=== PATIENT | male | born 1985 | race Caucasian/White ===

== ENCOUNTER 2016-11-09 01:08 | Inpatient (IN) | payer OTHER ==
[~2016-11-09] VITALS: Ht 177.8 cm; Wt 127.8 kg
[2016-11-09] MEDS ORDERED: ATV/1 PO (01:45)
[2016-11-09 01:56] LABS: HEMATOCRIT 43.2 % (42-52); MEAN CELL VOLUME 84.2 fL (80-100); MEAN CORPUSCULAR HEMOGLOBIN 28.7 pg (25-34); MEAN PLATELET VOLUME 10.9 fL (7.4-10.4); PLATELET COUNT 216 K/uL (130-400); RED BLOOD COUNT 5.13 M/uL (4.7-6.1); WHITE BLOOD COUNT 6.49 K/uL (4.8-10.8)
[2016-11-09] MEDS ORDERED: LORAZEPAM 1 MG TAB SL STA (01:57)
[2016-11-09 02:07] LABS: ALT/SGPT 37 U/L (12-78); AST/SGOT 19 U/L (15-37); BLOOD UREA NITROGEN 25 mg/dl (7-18); BUN/CREATININE RATIO 28.9 (10-20); CALCIUM 8.5 mg/dl (8.5-10.1); CARBON DIOXIDE 24 mmol/L (21-32); CHLORIDE 105 mmol/L (98-107); CREATININE 0.88 mg/dl (0.60-1.40); GLUCOSE 121 mg/dl (70-99); POTASSIUM 3.5 mmol/L (3.5-5.1); SODIUM 140 mmol/L (136-145)
[2016-11-09 02:09] LABS: ACETAMINOPHEN < 2 ug/ml (10-30)
[2016-11-09 02:17] LABS: ALKALINE PHOSPHATASE 56 U/L (45-117)
[2016-11-09 02:30] LABS: URINE APPEARANCE CLEAR (CLEAR); URINE BILIRUBIN NEG (NEG); URINE COLOR YELLOW; URINE EPITHELIAL CELL AUTO >30 /lpf (0-5); URINE NITRITE NEG (NEG); URINE SPECIFIC GRAVITY 1.033 (1.000-1.030); UROBILINOGEN NEG (NEG)
[2016-11-09 02:34] LABS: MANUAL MICROSCOPIC REQUIRED? NO; REVIEW REQ? NO
[2016-11-09 02:35] LABS: BENZODIAZEPINE, URINE NEG (NEG); COCAINE,URINE NEG (NEG); PHENCYCLIDINE, URINE NEG (NEG)
--- NOTE | 2016-11-09 02:36 | EMERGENCY ROOM VISIT NOTE ---
History Report prepared by Jose: Monique Tucker Under the Supervision of: Dr. Karlie Landry D.O. First contact with patient: 01:09 Chief Complaint: MENTAL HEALTH EVALUATION Stated Complaint: MENTAL HEALTH History of Present Illness The patient is a 31 year old male who presents to the Emergency Room with complaints of worsening mental instability that began a few days ago. The patient stats that he has a history of schizoaffective disorder. He states that he is currently on Lorazepam. The patient states that over the past several days he has been arguing with his father. He states that he would like to spend a few days in the hospital for psychiatric reasons. The patient states that he has been evaluated for psychiatric reasons in the past here and in other facilities. He denies any other health problems than the schizoaffective disorder. The patient states that he occasionally uses heroin, noting that he last used a few months ago. He states that he lives with his father and is currently unemployed. The patient denies any suicidal or homicidal ideation, but describes his mental instability. He denies any history of an irregular heartbeat. The patient notes a scratch to his left arm from a cat. Source of History: patient Onset: few days ago Position: other (global) Quality: other (mental instability) Timing: worsening Review of Systems See HPI for pertinent positives & negatives. A total of 10 systems reviewed and were otherwise negative. Past Medical & Surgical Medical Problems: (1) Antisocial personality disorder (2) Anxiety disorder (3) Depression (4) Hypertension Nos (5) Schizophrenia Family History No pertinent family history Social History Smoking Status: Former Smoker Alcohol Use: occasionally Drug Use: marijuana Marital Status: single Housing Status: lives with family Occupation Status: employed Current/Historical Medications Scheduled Lorazepam (Ativan), 1 MG PO DAILY Allergies Coded Allergies: Poison Iona Extract/Poison [place] Extra (Unverified Allergy, Severe, RASH, ) Physical Exam Vital Signs Date Time Temp Pulse Resp B/P Pulse Ox O2 Delivery O2 Flow Rate FiO2 11/09/16 01:52 84 18 148/81 Room Air 11/09/16 01:11 36.5 83 18 184/112 95 Room Air Physical Exam HEENT: Head - normocephalic and atraumatic Pupils are equal, round, and reactive to light. Extraocular eye muscles are intact, and sclera are anicteric. Nose - moist nasal mucosa without discharge. Mouth - moist buccal mucosa. Oropharynx is nonerythematous and there is no tonsillar exudate or edema noted. Neck: Supple; no JVD, nuchal rigidity, cervical lymphadenopathy. Heart: Regular rate and initial irregular rhythm. There is a normal S1 and S2 with no murmurs, clicks, or gallops appreciated. Lungs: Clear to auscultation bilaterally with no wheezes, rales, or rhonchi. Abdomen: Soft, completely nontender, nondistended, with good bowel sounds. There are no palpable pulsatile masses or hepatosplenomegaly. There is no guarding, rigidity, or rebound noted. Extremities: No evidence of cyanosis, clubbing, or edema. There are easily palpable peripheral pulses. Skin: warm and dry with good turgor and no rashes. Psych: Flat affect, denies suicidal or homicidal ideation, but describes mental instability. Medical Decision & Procedures Laboratory Results 11/09/16 01:27 11/09/16 01:27 Test 11/09/16 01:27 11/09/16 02:00 Red Blood Count 5.13 M/uL (4.7-6.1) Mean Corpuscular Volume 84.2 fL (80-100) Mean Corpuscular Hemoglobin 28.7 pg (25-34) Mean Corpuscular Hemoglobin Concent 34.0 g/dl (32-36) RDW Standard Deviation 38.6 fL (36.4-46.3) RDW Coefficient of Variation 12.7 % (11.5-14.5) Mean Platelet Volume 10.9 fL (7.4-10.4) Anion Gap 11.0 mmol/L (3-11) Est Creatinine Clear Calc Drug Dose 160.3 ml/min Estimated GFR () 130.8 Estimated GFR (Non- 112.9 BUN/Creatinine Ratio 28.9 (10-20) Calcium Level 8.5 mg/dl (8.5-10.1) Total Bilirubin 0.3 mg/dl (0.2-1) Direct Bilirubin < 0.1 mg/dl (0-0.2) Aspartate Amino Transf (AST/SGOT) 19 U/L (15-37) Alanine Aminotransferase (ALT/SGPT) 37 U/L (12-78) Alkaline Phosphatase 56 U/L (45-117) Total Protein 6.8 gm/dl (6.4-8.2) Albumin 3.6 gm/dl (3.4-5.0) Thyroid Stimulating Hormone (TSH) 3.130 uIu/ml (0.300-4.500) Salicylates Level < 1.7 mg/dl (2.8-20) Acetaminophen Level < 2 ug/ml (10-30) Ethyl Alcohol mg/dL < 3.0 mg/dl (0-3) Urine Color YELLOW Urine Appearance CLEAR (CLEAR) Urine pH 5.0 (4.5-7.5) Urine Specific [place] 1.033 (1.000-1.030) Urine Protein NEG (NEG) Urine Glucose (UA) NEG (NEG) Urine Ketones NEG (NEG) Urine Occult Blood NEG (NEG) Urine Nitrite NEG (NEG) Urine Bilirubin NEG (NEG) Urine Urobilinogen NEG (NEG) Urine Leukocyte Esterase SMALL (NEG) Urine WBC (Auto) 10-30 /hpf (0-5) Urine RBC (Auto) 0-4 /hpf (0-4) Urine Hyaline Casts (Auto) 1-5 /lpf (0-5) Urine Epithelial Cells (Auto) >30 /lpf (0-5) Urine Bacteria (Auto) NEG (NEG) Urine Opiates Screen NEG (NEG) Urine Methadone, Qualitative NEG (NEG) Urine Barbiturates NEG (NEG) Urine Phencyclidine (PCP) Level NEG (NEG) Ur Amphetamine/Methamphetamine NEG (NEG) MDMA (Ecstasy) Screen NEG (NEG) Urine Benzodiazepines Screen NEG (NEG) Urine Cocaine Metabolite NEG (NEG) Urine Marijuana (THC) NEG (NEG) Laboratory results per my review. Medications Administered Medications (Trade) Dose Ordered Sig/Deonte Route Start Time Stop Time Status Last Admin Dose Admin Lorazepam (Ativan Tab) 2 mg NOW STAT SL 11/09/16 01:57 11/09/16 01:58 DC 11/09/16 02:07 2 MG Procedure The patient was treated with 2 mg SL Ativan Tab. ED Course 0152: Past medical records reviewed. The patient was evaluated in room A5. A complete history and physical exam was performed. Labs were drawn as above. 0157: Ordered Ativan Tab 2 mg SL. 0200: The patient was placed on the monitor due to his auscultated irregular rhythm. It showed an occasional PAC. 0238: The patient is medically clear to be evaluated by Anita Manning. 0317: I reevaluated the patient and he is currently being evaluated by Anita Manning. 0401: I reevaluated the patient and he is signing himself in. He will be taken upstairs for further mental health care. Medical Decision The patient is a 31 year old male who presents to the ED with worsening mental instability. Differential diagnosis includes mood disorder, thought disorder, suicidal ideation, homicidal ideation, exacerbation of schizoaffective. Lab interpretation: white count is normal, stable H&H, normal TSH, glucose 121, BUN 25, Creatinine 0.8, urine tox screen negative, alcohol, Tylenol, and aspirin are negative. This is a 31-year-old male patient who presents the emergency department with what he describes as emotional instability. He has a history of schizoaffective disorder but is not currently taking any medications except for lorazepam. The patient is willing to admit himself voluntarily. He was evaluate by staff from [facility] and they have accepted him Impression Primary Impression: Emotional instability Scribe Attestation The scribe's documentation has been prepared under my direction and personally reviewed by me in its entirety. I confirm that the note above accurately reflects all work, treatment, procedures, and medical decision making performed by me. Departure Information Dispostion Mental Health Acute Care Referrals No Doctor, Assigned (PCP)
[2016-11-09 04:30] VITALS: BP 138/72; PULSE 72; TEMP 36.5; Ht 177.8 cm; Wt 127.8 kg
[2016-11-09] MEDS ORDERED: BISMUTH SUBSALICYLATE PER ML OMNICELL CHARGE PO PRN (06:00)
[2016-11-09] MEDS ORDERED: SODIUM CHLORIDE 0.65% NA SOLN 45 ML (OCEAN) PRN (06:00)
[2016-11-09] MEDS ORDERED: MAGNESIUM HYDROXIDE SUSP 30 ML UDC PO PRN (06:00)
[2016-11-09] MEDS ORDERED: NURSING VERBAL MED ORDER ONE (06:00)
[2016-11-09] MEDS ORDERED: ACETAMINOPHEN 325 MG TAB PO PRN (06:00)
[2016-11-09] MEDS ORDERED: hydrOXYzine HCL 25 MG TAB PO PRN ×2 (06:00)
[2016-11-09] MEDS: LORAZEPAM 1 MG TAB PO SCH (09:00)
[2016-11-09] MEDS ORDERED: HALO100I IM (10:52)
[2016-11-09] MEDS ORDERED: HALOPERIDOL LACTATE 5 MG/ML 1 ML VIAL IM PRN (11:30)
--- NOTE | 2016-11-09 11:40 | Psychiatric History & Physical ---
History Identifying Data Paul Perla is a 31-year-old male who currently lives in [] [alone] with [] . Paul Perla was admitted on a [201 voluntary] [302 involuntary] commitment. Patient is admitted from [home] [transfer from the medical floor] . The patient was brought to the ED by the [police] [family] [ambulance] [self transport]. Information provided by the patient is considered to be [reliable] [unreliable]. Chief Complaint "Just fighting with my father". History of Present Illness The patient is known from previous hospitalization here in 2014, at which time he had depression and paranoia, and was a limited historian, so records had to be obtained from his outpatient psychiatrist. He was on sertraline which was increased, and was continued on multiple other psychotropic medications, including Abilify, Wellbutrin SR, gabapentin, propanolol, and topiramate. He was noted to be desaturating to the 60s at night, so was placed on oxygen and then CPAP, after it was determined that he had a sleep study in 2012 and was diagnosed with sleep apnea. He was referred to follow-up with a sleep physician, and arrangements were made for him to get CPAP at the [facility], where he was living at the time. Information was obtained from his neurologist , whom he had told he was abusing salvia. A family meeting was held with his mother, and he was ultimately discharged to the [facility]. He was also hospitalized at [facility] in 2015 for psychosis after presenting to our emergency room with hallucinations and agitation with his parents, requesting admission. Per records, he presented to the ER last night with complaints of "mental instability," stating he had been arguing with his father, and needed to come into the psychiatric unit. He received Ativan 2 mg in the emergency room. He had cardiac monitoring in the emergency room due to an irregular rhythm, which showed an occasional PAC. He told the emergency room staff he was only taking Ativan at home, and thought he needed additional psychiatric medication. 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 I asked to spend a few days in the hospital, I couldn't handle it." He says he is only on Ativan at home, "it's not enough." Asked about Rx in chart for Haldol decanoate, which he says he does get monthly, but not sure when last one was. Mood is "straight, it's been good." He reported anergia to the nurse, and says he does "nothing, I don't do anything." He says he stays at home all day, and goes to psych rehab once a week. He reports 8 hours of sleep a night, and denies SI and HI. He says he got out of the [facility] a few weeks ago, and has been following up at [facility] with Dr. Posada, although records indicate he sees Dr. Monson at [facility]. He denies that he has a therapist, but has a CM, Rosanna. He denies hearing voices, but has long pauses at times. He says he is slowed because "I'm burnt out from drug use," but says he doesn't need rehab or substance abuse treatment, because "I'm not bad for you." He denies abusing pills, but says he takes Ativan daily which is prescribed by Dr. Monson, which he says was started at [facility] in Aug. He says he takes it twice a day, although the med rec states once daily. He says his father "gets me medicinal marijuana from the internet," which he uses in liquid form and ingests twice a day. He also admits to using heroin, last use 3 months ago, IV. He says he wants to "maybe get a treatment plan, [facility]." "I want to be medicated as soon as possible, really, I was Geodon...I want lithium. Valium, Abilify." Past Psychiatric History Current OP Treatment: psychiatrist (Dr. Monson at [facility] (patient reports Dr. Posada, but most recent meds from Dr. Monson)), therapeutic case manager (Rosanna) Prior Psych Hospitalizations: [facility] (Last 2015), [facility] (Last2014) Previously diagnosed with schizophrenia, schizoaffective disorder, depression not otherwise specified, antisocial personality disorder, ADHD, and polysubstance dependence. Per records from last admission here, his outpatient psychiatrist felt that recurrent depression and paranoid schizophrenia with the diagnoses that fit him best. His first episode of depression was at age 16, and he has had multiple episodes since then. He has consistently refused recommendations to work with a therapist. He has attended psych rehabilitation and [facility] on and off over the years. He's had numerous previous psychiatric admissions, including to [facility] for several months, multiple admissions to the [facility] (September 2014 for paranoia ), and multiple admissions to this unit. He has a history of 2 or 3 suicide attempts, last known was in August 2012 by overdose on lithium, after which she was hospitalized at this facility. He has lived at the [facility] in the past, and was there the time of his last admission on our unit in May 2015. Although he denies a history of violence, records indicate that he has a history of criminal charges for terroristic threats, harassment, retaliation against a witness, and indecent assault. Previous medication trials: Patient is a poor historian and the following list is gleaned from past records Risperidone [place] Effexor XR Seroquel Trazodone Geodon Bupropion SR Propanolol for anxiety Topiramate Sertraline Adderall, Concerta, Provigil Olanzapine Fluoxetine Xanax, Ativan, Klonopin Hydroxyzine lurasidone Past Medical/Surgical History History of Obesity: Yes History of HTN: Yes History of Diabetes: No History of Heart Disease: No History of Dyslipidemia: No History of Concussion/Seizure: No (according to records, he was seen in the emergency room in December 2014 for a seizure, and followed up with outpatient neurology. Per his report, he was told he did not have a seizure disorder, but per records, Dr. Auguste of neurology was concerned that he was having seizures. ) Problem List: (1) Sleep apnea (2) Seizure Although diagnosed with sleep apnea and prescribed CPAP, he is noncompliant with it. Allergies Allergies: Coded Allergies: Poison Iona Extract/Poison [place] Extra (Unverified Allergy, Severe, RASH, ) Home Medications Scheduled Haloperidol Decanoate (Haldol Decanoate 100), 1 ML IM MONTHLY Lorazepam (Ativan), 1 MG PO DAILY Family History No pertinent family history History of Obesity: No History of HTN: No History of Diabetes: No History of Heart Disease: No History of Dyslipidemia: No Per records, there is a history of depression in mother and grandparents, and sister was a heroin addict. No known history of suicide. Alcohol Use Alcohol Use In Past 12 Months: No Substance History Substance Use Past 12 Months: Hx of Inhalent Use: No Hx of Organic Substance Use: Yes (pot weekly "any chance I get" per nursing admission; but tells me he is using liquid THC twice a day that his father buys for him on the Internet. Per records, he also has a history of abusing salvia, last in 2014.) Hx of Illegal/Street Drug Use: Yes (IV heroin every few months, last used Aug 2016) Hx of Over the Counter Med Use: No Hx of Prescription Med Use: Yes (Says he is prescribed Ativan once a day but takes twice a day - not confirmed ) Used to smoke 2 packs a day for 15 years, but states he quit. History of abusing prescription medications including codeine, Vicodin, and possibly others. Has also used crack, LSD, and mushrooms over 1 year ago. He has one episode of inpatient rehabilitation in 2002. Personal History Born in: [place], lived there for 1 year before moving to [place] where spent childhood Parental Status: Education: started college Work History: never worked, on disability for mental health reasons. Relationship History: never Children: none Spiritual Affiliation: denies Legal History: reported (history of multiple criminal charges and incarceration in the past) Abuse History: none Psychological Trauma History: Other (denies) Additional Comments: Parents moved the family to the for their jobs. They moved to [place] in 2001, and both parents work at [employer]. His father has a PhD and his mother has a master's. He had 2 sisters, one of whom in 2010 from complications from the flu, and the other lives independently. He has never been . Review of Systems Attempted to review 10 systems, but the patient was a poor participant in limited historian. All were negative except as stated above. Examination Physical Examination Physical exam performed in the emergency room was reviewed and accepted for the purposes of this admission. Vital Signs Vital Signs Past 12 Hours Date Time Temp Pulse Resp B/P Pulse Ox O2 Delivery O2 Flow Rate FiO2 11/09/16 06:54 11/09/16 04:30 36.5 72 16 138/72 11/09/16 04:22 81 16 141/79 98 11/09/16 01:52 84 18 148/81 Room Air 11/09/16 01:11 36.5 83 18 184/112 95 Room Air Laboratory Results Last 24 Hours Test 11/09/16 01:27 11/09/16 02:00 White Blood Count 6.49 K/uL Red Blood Count 5.13 M/uL Hemoglobin 14.7 g/dL Hematocrit 43.2 % Mean Corpuscular Volume 84.2 fL Mean Corpuscular Hemoglobin 28.7 pg Mean Corpuscular Hemoglobin Concent 34.0 g/dl RDW Standard Deviation 38.6 fL RDW Coefficient of Variation 12.7 % Platelet Count 216 K/uL Mean Platelet Volume 10.9 fL Sodium Level 140 mmol/L Potassium Level 3.5 mmol/L Chloride Level 105 mmol/L Carbon Dioxide Level 24 mmol/L Anion Gap 11.0 mmol/L Blood Urea Nitrogen 25 mg/dl Creatinine 0.88 mg/dl Est Creatinine Clear Calc Drug Dose 160.3 ml/min Estimated GFR () 130.8 Estimated GFR (Non- 112.9 BUN/Creatinine Ratio 28.9 Random Glucose 121 mg/dl Calcium Level 8.5 mg/dl Total Bilirubin 0.3 mg/dl Direct Bilirubin < 0.1 mg/dl Aspartate Amino Transf (AST/SGOT) 19 U/L Alanine Aminotransferase (ALT/SGPT) 37 U/L Alkaline Phosphatase 56 U/L Total Protein 6.8 gm/dl Albumin 3.6 gm/dl Thyroid Stimulating Hormone (TSH) 3.130 uIu/ml Salicylates Level < 1.7 mg/dl Acetaminophen Level < 2 ug/ml Ethyl Alcohol mg/dL < 3.0 mg/dl Urine Color YELLOW Urine Appearance CLEAR Urine pH 5.0 Urine Specific [place] 1.033 Urine Protein NEG Urine Glucose (UA) NEG Urine Ketones NEG Urine Occult Blood NEG Urine Nitrite NEG Urine Bilirubin NEG Urine Urobilinogen NEG Urine Leukocyte Esterase SMALL Urine WBC (Auto) 10-30 /hpf Urine RBC (Auto) 0-4 /hpf Urine Hyaline Casts (Auto) 1-5 /lpf Urine Epithelial Cells (Auto) >30 /lpf Urine Bacteria (Auto) NEG Urine Opiates Screen NEG Urine Methadone, Qualitative NEG Urine Barbiturates NEG Urine Phencyclidine (PCP) Level NEG Ur Amphetamine/Methamphetamine NEG MDMA (Ecstasy) Screen NEG Urine Benzodiazepines Screen NEG Urine Cocaine Metabolite NEG Urine Marijuana (THC) NEG Mental Examination Appearance: appropriately dressed, disheveled, other (obese, appears older than stated age, drinking a cup of coffee) Eye contact is: fair Motor behavior is: steady gait & station, no abnormal motor movements Speech: other (delayed responses, minimal) Affect: blunted (incongruent with stated affect) Mood is: other ("okay") Thought process: concrete (gives vague, brief answers to questions, often gives conflicting reports, and is not a reliable historian), other (disorganized , at times answering with unrelated information) Thought content: other (difficult to assess due to vague, concrete answers) Suicidal thought are: denied Homicidal thoughts are: denied Hallucinations: denies auditory, denies visual Cognition: other (all spheres impaired) Intelligence estimated to be: average (to below average) Insight: impaired Judgement: impaired Impression / Recommendations Impression 31-year-old single male with a history of paranoid schizophrenia and recurrent depression as well as substance abuse who presents after an argument with his father, requested voluntary admission, and is admitted on a 201. He is not a reliable historian, cannot tell me who his psychiatrist is or what medications he is taking. His external medication history reveals a prescription for Haldol decanoate filled on 10/05/2016, but he cannot tell me the dose or when he last got the shot. He states he has been abusing marijuana, told the nurse once a week, but tells me twice a day, and this will need to be further explored as it could explain a worsening in his psychosis. In addition, he has not been compliant with CPAP for his sleep apnea which could also be contributing to worsening mental state. We will need to coordinate care with his outpatient psychiatrist, therapeutic case manager, and involve his parents, whom he is living with. He requires inpatient treatment due to the severity of his condition, with disorganization, impaired cognition, and inability to provide for his own basic needs outside the hospital. Risk Factors Assessment Male: Yes : No /single/: Yes Health problems: Yes Mental Health Diagnoses: Yes Substance use disorders: Yes Previous attempt: Yes Previous psychiatric stay: Yes Smoker: No Protective Factors Assessment Sabianist beliefs: No : No Responsible for young children: No Employed: No Stable relationships: No Supportive family: Yes Absence of risk factors above: No (patient admits to a fight with his father prior to admission) Recommendations (1) Schizophrenia Get records from the [facility] psych clinic to determine dose of Haldol Decanoate and when he last received the shot. Will order Haldol 10 mg by mouth or IM here as needed for psychosis. We'll get an EKG as he had high blood pressure and abnormal rhythm in the emergency room. Involved therapeutic case manager and explore ways to increase structure at home. Patient states he may be willing to attend [facility], and says he is already attending psych rehabilitation once a week. Family meeting with parents. (2) Antisocial personality disorder (3) Depression Continue to monitor for symptoms of depression here. Although he denies feeling depressed today, his affect is quite flat, which could be due to his primary thought disorder. In the past has been treated with antidepressants, but denies that he is on any currently, and we'll need to coordinate care with his outpatient provider to determine his course of treatment since we last saw him a year and a half ago.. (4) Seizure We'll request records from outpatient neurologist, Dr. Escoto. (5) Sleep apnea Patient has been diagnosed with sleep apnea and should be using CPAP, but has been noncompliant. We'll need to explore further with his parents. (6) Heroin abuse Patient reports using IV heroin 2 months ago. He has a long history of polysubstance abuse. Would recommend avoiding prescription of controlled substances. Will discuss his current Ativan prescription with Dr. Castano. (7) Cannabis abuse Patient was provided education about the risks of cannabis use, specifically that it can worsen psychotic illness, and that he should not use hallucinogens. He shows poor insight and understanding. We'll need to have family meeting with parents to further discuss this, as the patient states his father is providing him with acquitted THC. (8) Obesity Healthy diet, recommend exercise and weight loss, consider dietitian consult. CPT Code Initial Hospital Care: 38007
[2016-11-09] MEDS: ALUMINUM/MAGNESIUM SUSP 30 ML UDC PO PRN (18:12)
[2016-11-09] MEDS: HALOPERIDOL 5 MG TAB PO PRN (21:11)
[2016-11-10 06:55] VITALS: BP 125/77; PULSE 114; TEMP 36.8
[2016-11-10 07:15] VITALS: O2SAT 94
[2016-11-10] MEDS: LORAZEPAM 1 MG TAB PO SCH (09:00)
[2016-11-10] MEDS: HALOPERIDOL 5 MG TAB PO PRN (09:01)
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
[2016-11-10] MEDS ORDERED: HALOPERIDOL DECANOATE INJ 50 MG/ML VIAL IM SCH (12:00)
[2016-11-10] MEDS: HALOPERIDOL 5 MG TAB PO SCH (20:54)
[2016-11-10 22:39] VITALS: PULSE 82; O2SAT 95
[2016-11-11 06:56] VITALS: BP_SYST 118; BP_SYST 126; BP_DIAS 77; BP_DIAS 86; PULSE 86; PULSE 88; TEMP 36.6
[2016-11-11 06:58] VITALS: O2SAT 92
[2016-11-11] MEDS: HALOPERIDOL 5 MG TAB PO SCH ×2 (09:30→21:23)
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
[2016-11-11] MEDS: HALOPERIDOL 5 MG TAB PO PRN (13:28)
[2016-11-11] MEDS ORDERED: LORAZEPAM 1 MG TAB PO PRN ×2 (13:30→17:30)
[2016-11-11] MEDS ORDERED: TRIHEXYPHENIDYL HCL 5 MG TAB PO ONE (14:15)
[2016-11-11] MEDS: LORAZEPAM 2 MG TAB PO PRN (14:43)
[2016-11-11] MEDS: TRIHEXYPHENIDYL HCL 5 MG TAB PO SCH (21:23)
[2016-11-12] MEDS: LORAZEPAM 2 MG TAB PO PRN ×2 (03:15→19:58)
[2016-11-12 06:43] VITALS: O2SAT 95
[2016-11-12 06:44] VITALS: BP_SYST 120; BP_SYST 127; BP_DIAS 77; BP_DIAS 90; PULSE 81; PULSE 86; TEMP 36.4
[2016-11-12] MEDS: TRIHEXYPHENIDYL HCL 5 MG TAB PO SCH ×2 (08:50→21:48)
[2016-11-12] MEDS: HALOPERIDOL 5 MG TAB PO SCH ×2 (08:50→21:48)
[2016-11-12 08:57] VITALS: O2SAT 94
--- NOTE | 2016-11-12 10:07 | Psychiatric Progress Notes ---
Progress Note Date of Service Nov 12, 2016. Interval History 31 yo male with schizophrenia, admitted voluntarily on 10/20/16 after being brought to the ER by family, due to ?aggressive behaviors, and patient wanting to get back on meds. Chief Complaint "I need a med adjustment". Subjective Patient was seen & assessed interval progress reviewed with nursing. Patient wanting an adjustment in his medications. Patient is limited historian and has some disorganization to his thinking and behaviors. Pt was looking at technical proposal writer suspiciously when technical proposal writer was walking on the unit a bit before assessing him. He endorsed some paranoid thinking. He denied AH or VH, but does appear to be responding to internal stimuli. He endorsed "seeing something crash into internet the other day, might have been a coincidence but not sure" Staff continue to note pacing on the unit and reported that he only obtained 1.5 hours of sleep last night. Pt stated sleep was better last night and that he obtained more like 3 hours. He is using his CPAP and denied issues with it, while staff noted that his bradley is likely limiting a full seal. Pt admitted to getting into fights with his family over not having enough space and finding them to be too strict, expecting him to do things that he feels unable to do. Staff noted, that he got agitated from a phone call from mother yesterday in which she was overhead giving supportive comments. Pt is hoping to not have to stay in the hospital too much longer. When technical proposal writer asked what he might want to discuss with his parents in the family meeting scheduled for Monday he could only come up with "being able to leave soon." Pt had submitted but then revoked a 72 hour notice yesterday and is not requesting discharge at this time. He reports normal appetite. He denied fatigue. He denied SI or HI. Pacing has decreased and not occurring this morning. Pt feels that ativan prn given yesterday helped him Review of Systems Constitutional: No chills, No fatigue, No fever, No problem reported, No sweats , No weakness, No weight loss Abdomen: No GI bleeding, No constipation, No diarrhea, No nausea, No pain, No problem reported, No vomiting Neurologic: No balance problems, No memory loss, No numbness/tingling, No paralysis, No problem reported, No vertigo, No weakness Psychiatric: + anxiety, No anhedonism, No depression symptoms, No insomnia, No problem reported, No substance abuse Sleep Information Total Hours of Sleep: 1.50 Meal Information Percent of Breakfast Consumed: 100 Percent of Lunch Consumed: 100 Percent of Dinner Consumed: 100 Mental Status Exam During interview pt is: alert and oriented, guarded Appearance: appropriately dressed, disheveled, other Eye contact is: fair Motor behavior is: steady gait & station, no abnormal motor movements Speech: other (love volume, fast speech) Affect: flat Mood is: other ("okay") Thought process: concrete (gives vague, brief answers to questions, often gives conflicting reports, and is not a reliable historian), other (distractable ) Thought content: other (some darting of eyes at times denied hallucinations but behavior suggestive of reacting to internal stimuli ) Suicidal thought are: denied Homicidal thoughts are: denied Hallucinations: denies auditory, denies visual Cognition: other (all spheres impaired) Intelligence estimated to be: average (to below average) Insight: impaired Judgement: impaired Summary of Past History 11/10- Spoke with Dr. Monson who has been seeing Paul for more than 3 years. Each time he comes to her office he is polite, calm and never has complaints, always saying that meds are working, then will frequently hear from his father that he is not doing well, or he will end up in the hospital. She does not think that he is well bonded with her. He was discharged from [facility] on 09/19/16 on haldol dec 50 mg. q 4 wks, with last shot on or about 10/14. She has been working to get [facility] to administer his injections, but has not yet been confirmed. His only other med is Ativan [address] Monson indicates that Paul's father had been giving him some form of marijuana product, but this lead to more agitation, which is why she restarted the ativan. She describes that his negative symptoms have really impaired his life, and he is unable to achieve any life goals, as he does nothing at home and has no structure. She has wondered about a trial of Clozaril, but is concerned that he will not comply with the blood draws. His next appt is 11/28 at 2:20. Impression received haldol dec 100 mg. yesterday. therapeutic case manager is working toward arranging OP injections with Dr. Monson. Family meeting with father scheduled for today as family concerned about taking him back to their home. Will continue PO haldol for now as well, adjusting dose based on 24 hr use with prns. Less pacing today, so am less concerned about akathisia. Patient is minimizing symptoms but this is true of his interactions with all of his providers as an OP , but is seems clear that he remains psychotic and without insight, so will require ongoing inpatient care. Continued Inpatient Care The patient continues to require inpatient care due to the severity of his condition and the risk of harm to self and others if discharged. Plan (1) Schizophrenia 11/09- Get records from the [facility] psych clinic to determine dose of Haldol Decanoate and when he last received the shot. Will order Haldol 10 mg by mouth or IM here as needed for psychosis. We'll get an EKG as he had high blood pressure and abnormal rhythm in the emergency room. Involved director of casework services and explore ways to increase structure at home. Patient states he may be willing to attend [facility], and says he is already attending psych rehabilitation once a week. Family meeting with parents. 11/10 - Meds clarified with Dr. Monson - Administer haldol dec 100 mg. IM today and q 4 weeks - Add haldol 5 mg. po BID until dec therapeutic - Reality orientation - Attend group and individual therapy as tolerated - Schedule family meeting to discuss disposition 11/11 - Continue current meds 11/12 -added depakote er at 250mg bid, first dose morning of 11/12 - as adjunctive med in general and with aim of alleviating agitation (2) Antisocial personality disorder (3) Depression 11/09- Continue to monitor for symptoms of depression here. Although he denies feeling depressed today, his affect is quite flat, which could be due to his primary thought disorder. In the past has been treated with antidepressants, but denies that he is on any currently, and we'll need to coordinate care with his outpatient provider to determine his course of treatment since we last saw him a year and a half ago.. (4) Seizure We'll request records from outpatient neurologist, Dr. Escoto. (5) Sleep apnea 11/09- Patient has been diagnosed with sleep apnea and should be using CPAP, but has been noncompliant. We'll need to explore further with his parents. 11/10 - Continue to encourage patient to accept cpap 11/11 - Patient accepted Cpap, but seal is leaky 10/20 bradley. Encouraged to trim. - Will need follow up with pcp (6) Heroin abuse 11/09- Patient reports using IV heroin 2 months ago. He has a long history of polysubstance abuse. Would recommend avoiding prescription of controlled substances. Will discuss his current Ativan prescription with Dr. Castano. 11/10 - Will DC ativan in favor of haldol BID, as ativan was restarted by Dr. Monson 10/20 agitation (7) Cannabis abuse Patient was provided education about the risks of cannabis use, specifically that it can worsen psychotic illness, and that he should not use hallucinogens. He shows poor insight and understanding. We'll need to have family meeting with parents to further discuss this, as the patient states his father is providing him with acquitted THC. (8) Obesity Healthy diet, recommend exercise and weight loss, consider dietitian consult. Discharge / Aftercare Planning Primary Care Physician: Name: Dr. Ayon Psychiatrist: Name: Dr Monson through [facility] Phone Number: [phone] Therapist: Name: zuleika Drop Man: Name: Rosanna Boggs through [facility] Phone Number: [phone] Visit Code E&M Code: 33040 Inventory Assets Strengths: Supportive family Needs: Compliance with treatment recommendations Risk Factors Assessment Male: Yes : No /single/: Yes Health problems: Yes Mental Health Diagnoses: Yes Substance use disorders: Yes Previous attempt: Yes Previous psychiatric stay: Yes Smoker: No Protective Factors Assessment Scientology beliefs: No : No Responsible for young children: No Employed: No Stable relationships: No Supportive family: Yes Absence of risk factors above: No (patient admits to a fight with his father prior to admission) Data Vital Signs Last 24 Hrs: Date Time Temp Pulse Resp B/P Pulse Ox O2 Delivery O2 Flow Rate FiO2 11/12/16 08:57 94 Room Air 94.0 11/12/16 06:44 36.4 81 19 120/77 86 127/90 11/12/16 06:43 95 Room Air Meds Administered Last 24 Hrs: Meds Administered (Past 24Hrs) Medications (Trade) Dose Ordered Sig/Deonte Route Start Time Stop Time Status Last Admin Dose Admin Haloperidol Decanoate (Haldol Decanoate Inj) 100 mg TODAY@1200 IM 11/10/16 12:00 11/10/16 13:00 DC 11/10/16 16:22 100 MG Haloperidol (Haldol Tab) 5 mg BID PO 11/10/16 22:00 12/10/16 21:59 11/12/16 08:50 5 MG Trihexyphenidyl HCl (Trihexyphenidyl HCl TAB) 5 mg BID PO 11/11/16 22:00 12/11/16 21:59 11/12/16 08:50 5 MG Trihexyphenidyl HCl (Trihexyphenidyl HCl TAB) 5 mg NOW ONCE PO 11/11/16 14:15 11/11/16 14:16 DC 11/11/16 14:43 5 MG Lorazepam (Ativan Tab) 2 mg Q4H PRN PO 11/11/16 14:30 12/11/16 14:29 11/12/16 03:15 2 MG Problem Qualifiers (1) Schizophrenia: Schizophrenia type: paranoid schizophrenia Qualified Codes: F20.0 - Paranoid schizophrenia (2) Depression: Depression Type: other depression Qualified Codes: F32.89 - Other specified depressive episodes
[2016-11-12] MEDS ORDERED: DIVALPROEX 250 MG EXTENDED REL TAB PO ONE (10:30)
[2016-11-12] MEDS: DIVALPROEX 250 MG EXTENDED REL TAB PO SCH (21:48)
[2016-11-12 22:30] VITALS: PULSE 77; O2SAT 91
[2016-11-13 06:50] VITALS: O2SAT 98
[2016-11-13 06:51] VITALS: BP_SYST 102; BP_SYST 110; BP_DIAS 75; BP_DIAS 81; PULSE 89; PULSE 92; TEMP 36.3
[2016-11-13] MEDS: DIVALPROEX 250 MG EXTENDED REL TAB PO SCH (08:33)
[2016-11-13] MEDS: HALOPERIDOL 5 MG TAB PO SCH ×2 (08:33→21:30)
[2016-11-13] MEDS: TRIHEXYPHENIDYL HCL 5 MG TAB PO SCH ×2 (08:33→21:30)
[2016-11-13 09:13] VITALS: O2SAT 98
--- NOTE | 2016-11-13 10:07 | Psychiatric Progress Notes ---
Progress Note Date of Service Nov 13, 2016. Interval History 31 yo male with schizophrenia, admitted voluntarily on 10/20/16 after being brought to the ER by family, due to ?aggressive behaviors, and patient wanting to get back on meds. Chief Complaint "I am given space here". Subjective Patient was seen & assessed interval progress reviewed with nursing. Pt did not use his CPAP last night. He denied having it in his room when he went to bed. He slept through the night. He was avoiding groups and junior technical writer awakened him from a nap mid morning, to assess him. Pt denied s/e to the depakote being added. no Gi complaints, pt denied feeling more tired from the medication. He did receive an ativan prn dosage yesterday that appeared to help lessen his irritability. Still isolative, avoiding groups and continues to pace in the unit, although this is reduced some. Without overt paranoia in his affect or interactions with staff yesterday or this morning. He denied depression. He denied SI or HI. He denied AH or VH or ideas of reference. He denied feeling anxious this morning. Appetite intact Review of Systems Constitutional: + fatigue, No chills, No fever, No problem reported, No sweats , No weakness, No weight loss Abdomen: No GI bleeding, No constipation, No diarrhea, No nausea, No pain, No problem reported, No vomiting Neurologic: No balance problems, No memory loss, No numbness/tingling, No paralysis, No problem reported, No vertigo, No weakness Psychiatric: + anxiety Sleep Information Total Hours of Sleep: 7.00 did not use CPAP last night Meal Information Percent of Breakfast Consumed: 100 Percent of Lunch Consumed: 100 Percent of Dinner Consumed: 100 Mental Status Exam During interview pt is: alert and oriented, guarded Appearance: appropriately dressed, disheveled, other Eye contact is: fair Motor behavior is: steady gait & station, no abnormal motor movements Speech: normal in rate, rhythm & volume Affect: flat Mood is: other ("ok") Thought process: concrete Thought content: other (some darting of eyes at times denied hallucinations but behavior suggestive of reacting to internal stimuli ) Suicidal thought are: denied Homicidal thoughts are: denied Hallucinations: denies auditory, denies visual Cognition: other (attention and concentration impaired) Intelligence estimated to be: average (to below average) Insight: impaired Judgement: impaired Summary of Past History 11/10- Spoke with Dr. Monson who has been seeing Paul for more than 3 years. Each time he comes to her office he is polite, calm and never has complaints, always saying that meds are working, then will frequently hear from his father that he is not doing well, or he will end up in the hospital. She does not think that he is well bonded with her. He was discharged from [facility] on 09/19/16 on haldol dec 50 mg. q 4 wks, with last shot on or about 10/14. She has been working to [facility] to administer his injections, but has not yet been confirmed. His only other med is Ativan [address] Monson indicates that Paul's father had been giving him some form of marijuana product, but this lead to more agitation, which is why she restarted the ativan. She describes that his negative symptoms have really impaired his life, and he is unable to achieve any life goals, as he does nothing at home and has no structure. She has wondered about a trial of Clozaril, but is concerned that he will not comply with the blood draws. His next appt is 11/28 at 2:20. Impression received haldol dec 100 mg. yesterday. fire investigation manager is working toward arranging OP injections with Dr. Monson. Family meeting with father scheduled for today as family concerned about taking him back to their home. Will continue PO haldol for now as well, adjusting dose based on 24 hr use with prns. Less pacing today, so am less concerned about akathisia. Patient is minimizing symptoms but this is true of his interactions with all of his providers as an OP , but is seems clear that he remains psychotic and without insight, so will require ongoing inpatient care. Continued Inpatient Care The patient continues to require inpatient care due to the severity of his condition and the risk of harm to self and others if discharged. Plan (1) Schizophrenia 11/09- Get records from the [facility] psych clinic to determine dose of Haldol Decanoate and when he last received the shot. Will order Haldol 10 mg by mouth or IM here as needed for psychosis. We'll get an EKG as he had high blood pressure and abnormal rhythm in the emergency room. Involved bilingual case manager and explore ways to increase structure at home. Patient states he may be willing to attend [facility], and says he is already attending psych rehabilitation once a week. Family meeting with parents. 11/10 - Meds clarified with Dr. Monson - Administer haldol dec 100 mg. IM today and q 4 weeks - Add haldol 5 mg. po BID until dec therapeutic - Reality orientation - Attend group and individual therapy as tolerated - Schedule family meeting to discuss disposition 11/11 - Continue current meds 11/12 -added depakote er at 250mg bid, first dose morning of 11/12 - as adjunctive med in general and with aim of alleviating agitation 11/13 -raise depakote er to 500mg bid, starting with evening 11/13 dosage -family meeting scheduled for 11/14 (2) Antisocial personality disorder (3) Depression 11/09- Continue to monitor for symptoms of depression here. Although he denies feeling depressed today, his affect is quite flat, which could be due to his primary thought disorder. In the past has been treated with antidepressants, but denies that he is on any currently, and we'll need to coordinate care with his outpatient provider to determine his course of treatment since we last saw him a year and a half ago.. (4) Seizure We'll request records from outpatient neurologist, Dr. Escoto. (5) Sleep apnea 11/09- Patient has been diagnosed with sleep apnea and should be using CPAP, but has been noncompliant. We'll need to explore further with his parents. 11/10 - Continue to encourage patient to accept cpap 11/11 - Patient accepted Cpap, but seal is leaky 10/20 bradley. Encouraged to trim. - Will need follow up with pcp (6) Heroin abuse 11/09- Patient reports using IV heroin 2 months ago. He has a long history of polysubstance abuse. Would recommend avoiding prescription of controlled substances. Will discuss his current Ativan prescription with Dr. Castano. 11/10 - Will DC ativan in favor of haldol BID, as ativan was restarted by Dr. Monson 10/20 agitation (7) Cannabis abuse Patient was provided education about the risks of cannabis use, specifically that it can worsen psychotic illness, and that he should not use hallucinogens. He shows poor insight and understanding. We'll need to have family meeting with parents to further discuss this, as the patient states his father is providing him with acquitted THC. (8) Obesity Healthy diet, recommend exercise and weight loss, consider dietitian consult. Discharge / Aftercare Planning Primary Care Physician: Name: Dr. Ayon Psychiatrist: Name: Dr Monson through [facility] Phone Number: [phone] Therapist: Name: zuleika Radio Assembler: Name: Rosanna Boggs through [facility] Phone Number: [phone] Visit Code E&M Code: 43725 Inventory Assets Strengths: Supportive family Needs: Compliance with treatment recommendations Risk Factors Assessment Male: Yes : No /single/: Yes Health problems: Yes Mental Health Diagnoses: Yes Substance use disorders: Yes Previous attempt: Yes Previous psychiatric stay: Yes Smoker: No Protective Factors Assessment Congregation beliefs: No : No Responsible for young children: No Employed: No Stable relationships: No Supportive family: Yes Absence of risk factors above: No (patient admits to a fight with his father prior to admission) Data Vital Signs Last 24 Hrs: Date Time Temp Pulse Resp B/P Pulse Ox O2 Delivery O2 Flow Rate FiO2 11/13/16 09:13 98 Room Air 11/13/16 06:51 36.3 92 20 102/81 89 110/75 11/13/16 06:50 98 Room Air 11/12/16 22:30 77 91 Meds Administered Last 24 Hrs: Meds Administered (Past 24Hrs) Medications (Trade) Dose Ordered Sig/Deonte Route Start Time Stop Time Status Last Admin Dose Admin Trihexyphenidyl HCl (Trihexyphenidyl HCl TAB) 5 mg BID PO 11/11/16 22:00 12/11/16 21:59 11/13/16 08:33 5 MG Trihexyphenidyl HCl (Trihexyphenidyl HCl TAB) 5 mg NOW ONCE PO 11/11/16 14:15 11/11/16 14:16 DC 11/11/16 14:43 5 MG Lorazepam (Ativan Tab) 2 mg Q4H PRN PO 11/11/16 14:30 12/11/16 14:29 11/12/16 19:58 2 MG Divalproex Sodium (Depakote Extended Rel Tab) 250 mg BID PO 11/12/16 22:00 11/13/16 09:51 DC 11/13/16 08:33 250 MG Divalproex Sodium (Depakote Extended Rel Tab) 250 mg NOW ONCE PO 11/12/16 10:30 11/12/16 10:31 DC 11/12/16 11:19 250 MG Problem Qualifiers (1) Schizophrenia: Schizophrenia type: paranoid schizophrenia Qualified Codes: F20.0 - Paranoid schizophrenia (2) Depression: Depression Type: other depression Qualified Codes: F32.89 - Other specified depressive episodes
[2016-11-13] MEDS: DIVALPROEX 500 MG EXTENDED RELEASE TAB PO SCH (21:30)
[2016-11-14] MEDS: ALUMINUM/MAGNESIUM SUSP 30 ML UDC PO PRN (01:37)
[2016-11-14] MEDS: LORAZEPAM 2 MG TAB PO PRN (02:40)
[2016-11-14 06:30] VITALS: O2SAT 82
[2016-11-14 06:48] VITALS: BP_SYST 105; BP_SYST 132; BP_DIAS 70; BP_DIAS 80; PULSE 91; PULSE 95; TEMP 36.3
[2016-11-14] MEDS: HALOPERIDOL 5 MG TAB PO SCH ×2 (09:11→21:51)
[2016-11-14] MEDS: DIVALPROEX 500 MG EXTENDED RELEASE TAB PO SCH ×2 (09:11→21:51)
[2016-11-14] MEDS: TRIHEXYPHENIDYL HCL 5 MG TAB PO SCH ×2 (09:11→21:51)
[2016-11-14 09:37] VITALS: O2SAT 95
--- NOTE | 2016-11-14 11:40 | Psychiatric Progress Notes ---
Progress Note Date of Service Nov 14, 2016. Interval History 31 yo male with schizophrenia, admitted voluntarily on 10/20/16 after being brought to the ER by family, due to ?aggressive behaviors, and patient wanting to get back on meds. Chief Complaint "Okay". Subjective Patient was seen & assessed interval progress reviewed with Treatment Team. Staff report he did not attend groups over the weekend, was isolating, and often walked laps around the unit. His parents visited, and there is a family meeting scheduled with them for tomorrow. He received when necessary medication on Monday due to suspicion and paranoia of staff. Today, he states that his mood is improved, and says he is "just working on centering myself, got back on psychiatric medication area" he denies side effects to medications, and thinks they're helping, stating "I feel better, just overall mentally." He denies suicidal thoughts, homicidal thoughts, hallucinations, and paranoia. He states he had a good visit with his parents over the weekend, and is planning to return home to live with them at discharge. He is not sure what he wants to discuss that his meeting with them tomorrow, and is not sure what their concerns are. He denies feeling irritable or agitated. He states he plans to attend psych rehabilitation and [facility] after discharge. Sleep Information Total Hours of Sleep: 2.50 Meal Information Percent of Breakfast Consumed: 100 Percent of Lunch Consumed: 100 Percent of Dinner Consumed: 100 Mental Status Exam During interview pt is: alert and oriented, guarded, other (a limited historian , giving vague, brief answers.) Appearance: appropriately dressed, disheveled, other Eye contact is: fair Motor behavior is: steady gait & station, no abnormal motor movements Speech: other (minimal) Affect: flat Mood is: other ("ok") Thought process: concrete Thought content: other (denies feeling paranoid, but appears guarded) Suicidal thought are: denied Homicidal thoughts are: denied Hallucinations: denies auditory, denies visual Cognition: other (attention and concentration impaired) Intelligence estimated to be: average (to below average) Insight: impaired Judgement: impaired Summary of Past History 11/10- Spoke with Dr. Monson who has been seeing Paul for more than 3 years. Each time he comes to her office he is polite, calm and never has complaints, always saying that meds are working, then will frequently hear from his father that he is not doing well, or he will end up in the hospital. She does not think that he is well bonded with her. He was discharged from [facility] on 09/19/16 on haldol dec 50 mg. q 4 wks, with last shot on or about 10/14. She has been working to get [facility] to administer his injections, but has not yet been confirmed. His only other med is Ativan [address] Monson indicates that Paul's father had been giving him some form of marijuana product, but this lead to more agitation, which is why she restarted the ativan. She describes that his negative symptoms have really impaired his life, and he is unable to achieve any life goals, as he does nothing at home and has no structure. She has wondered about a trial of Clozaril, but is concerned that he will not comply with the blood draws. His next appt is 11/28 at 2:20. Impression received haldol dec 100 mg here, and has been restarted on Depakote. radiation oncology manager is working toward arranging OP injections with Dr. Monson. Family meeting with parents is scheduled for 11/15/2016, as the family concerned about taking him back to their home. Will continue PO haldol for now as well, adjusting dose based on 24 hr use with prns. Patient is minimizing symptoms but this is true of his interactions with all of his providers as an OP, but is seems clear that he remains psychotic and without insight, so will require ongoing inpatient care until he can be safely transitioned back home. Continued Inpatient Care The patient continues to require inpatient care due to the severity of his condition and the risk of harm to self and others if discharged. Plan (1) Schizophrenia 11/09- Get records from the [facility] psych clinic to determine dose of Haldol Decanoate and when he last received the shot. Will order Haldol 10 mg by mouth or IM here as needed for psychosis. We'll get an EKG as he had high blood pressure and abnormal rhythm in the emergency room. Involved housing case manager and explore ways to increase structure at home. Patient states he may be willing to attend [facility], and says he is already attending psych rehabilitation once a week. Family meeting with parents. 11/10 - Meds clarified with Dr. Monson - Administer haldol dec 100 mg. IM today and q 4 weeks - Add haldol 5 mg. po BID until dec therapeutic - Reality orientation - Attend group and individual therapy as tolerated - Schedule family meeting to discuss disposition 11/11 - Continue current meds 11/12 - added depakote er at 250mg bid, first dose morning of 11/12 - as adjunctive med in general and with aim of alleviating agitation 11/13 -raise depakote er to 500mg bid, starting with evening 11/13 dosage - family meeting scheduled for 11/14 11/14 - Continue current medications. Family meeting tomorrow to discuss concerns about safety at home. (2) Antisocial personality disorder (3) Depression 11/09- Continue to monitor for symptoms of depression here. Although he denies feeling depressed today, his affect is quite flat, which could be due to his primary thought disorder. In the past has been treated with antidepressants, but denies that he is on any currently, and we'll need to coordinate care with his outpatient provider to determine his course of treatment since we last saw him a year and a half ago. (4) Seizure We'll request records from outpatient neurologist, Dr. Escoto. (5) Sleep apnea 11/09- Patient has been diagnosed with sleep apnea and should be using CPAP, but has been noncompliant. We'll need to explore further with his parents. 11/10 - Continue to encourage patient to accept cpap 11/11 - Patient accepted Cpap, but seal is leaky 10/20 bradley. Encouraged to trim. - Will need follow up with pcp (6) Heroin abuse 11/09- Patient reports using IV heroin 2 months ago. He has a long history of polysubstance abuse. Would recommend avoiding prescription of controlled substances. Will discuss his current Ativan prescription with Dr. Castano. 11/10 - Will DC ativan in favor of haldol BID, as ativan was restarted by Dr. Monson 10/20 agitation (7) Cannabis abuse Patient was provided education about the risks of cannabis use, specifically that it can worsen psychotic illness, and that he should not use hallucinogens. He shows poor insight and understanding. We'll need to have family meeting with parents to further discuss this, as the patient states his father is providing him with acquitted THC. (8) Obesity Healthy diet, recommend exercise and weight loss, consider dietitian consult. Discharge / Aftercare Planning Primary Care Physician: Name: Dr. Ayon Psychiatrist: Name: Dr Monson through [facility] Phone Number: [phone] Therapist: Name: zuleika Horse Rider: Name: Rosanna Boggs through [facility] Phone Number: [phone] Visit Code E&M Code: 43523 Inventory Assets Strengths: Supportive family Needs: Compliance with treatment recommendations Risk Factors Assessment Male: Yes : No /single/: Yes Health problems: Yes Mental Health Diagnoses: Yes Substance use disorders: Yes Previous attempt: Yes Previous psychiatric stay: Yes Smoker: No Protective Factors Assessment Episcopalian beliefs: No : No Responsible for young children: No Employed: No Stable relationships: No Supportive family: Yes Absence of risk factors above: No (patient admits to a fight with his father prior to admission) Data Vital Signs Last 24 Hrs: Date Time Temp Pulse Resp B/P Pulse Ox O2 Delivery O2 Flow Rate FiO2 11/14/16 09:37 95 Room Air 11/14/16 06:48 36.3 95 18 105/70 91 132/80 Meds Administered Last 24 Hrs: Meds Administered (Past 24Hrs) Medications (Trade) Dose Ordered Sig/Deonte Route Start Time Stop Time Status Last Admin Dose Admin Divalproex Sodium (Depakote Extended Rel Tab) 250 mg BID PO 11/12/16 22:00 11/13/16 09:51 DC 11/13/16 08:33 250 MG Divalproex Sodium (Depakote Extended Rel Tab) 500 mg BID PO 11/13/16 22:00 12/13/16 21:59 11/14/16 09:11 500 MG Problem Qualifiers (1) Schizophrenia: Schizophrenia type: paranoid schizophrenia Qualified Codes: F20.0 - Paranoid schizophrenia (2) Depression: Depression Type: other depression Qualified Codes: F32.89 - Other specified depressive episodes
[2016-11-14 22:52] VITALS: O2SAT 94
[2016-11-15 06:56] VITALS: BP_SYST 112; BP_SYST 130; BP_DIAS 76; BP_DIAS 90; PULSE 69; PULSE 91; TEMP 36.4
[2016-11-15 06:57] VITALS: O2SAT 97
[2016-11-15] MEDS: DIVALPROEX 500 MG EXTENDED RELEASE TAB PO SCH ×2 (08:35→22:07)
[2016-11-15] MEDS: HALOPERIDOL 5 MG TAB PO SCH ×2 (08:36→22:06)
[2016-11-15] MEDS: TRIHEXYPHENIDYL HCL 5 MG TAB PO SCH ×2 (08:36→22:07)
[2016-11-15 09:24] VITALS: O2SAT 97
--- NOTE | 2016-11-15 09:34 | Psychiatric Progress Notes ---
Progress Note Date of Service Nov 15, 2016. Interval History 31 yo male with schizophrenia, admitted voluntarily on 10/20/16 after being brought to the ER by family, due to ?aggressive behaviors, and patient wanting to get back on meds. Chief Complaint "Good, better". Subjective Patient was seen & assessed interval progress reviewed with nursing. Staff report he has been refusing all groups, walking laps in the halls, and tends to isolate in his room. His mother visited and was given an update by staff, and stated that he seemed improved. His room was noted to be messy with dirty bed linens. He requested Ativan yesterday for anxiety, and it appeared effective, as he was able to go back to sleep. He is taking his medications as prescribed. Today he states that his mood is improved from admission, and he feels "pretty good." He thinks the medications are helping him to stay more calm and even. He denies side effects to medications, and denies suicidal thoughts, homicidal thoughts, and hallucinations. He denies feeling angry or irritable. He has a family meeting with his parents this afternoon, and is hoping to be able to go home soon. He remains willing to increase his outpatient services at [facility] and [facility]. Sleep Information Total Hours of Sleep: 7.50 Meal Information Percent of Breakfast Consumed: 100 Percent of Lunch Consumed: 100 Percent of Dinner Consumed: 100 Mental Status Exam During interview pt is: alert and oriented, cooperative Appearance: appropriately dressed, other Eye contact is: good Motor behavior is: steady gait & station, other (walking laps around the unit, but able to stop and sit for the interview) Speech: normal in rate, rhythm & volume (minimal) Affect: blunted (brief, appropriate brightening on interaction and when discussing discharge) Mood is: other ("good, better.") Thought process: concrete Thought content: other (denies feeling paranoid, but appears guarded) Suicidal thought are: denied Homicidal thoughts are: denied Hallucinations: denies auditory, denies visual Cognition: other (attention and concentration impaired) Intelligence estimated to be: average (to below average) Insight: impaired Judgement: impaired Summary of Past History 11/10- Spoke with Dr. Monson who has been seeing Paul for more than 3 years. Each time he comes to her office he is polite, calm and never has complaints, always saying that meds are working, then will frequently hear from his father that he is not doing well, or he will end up in the hospital. She does not think that he is well bonded with her. He was discharged from [facility] on 09/19/16 on haldol dec 50 mg. q 4 wks, with last shot on or about 10/14. She has been working to get [facility] to administer his injections, but has not yet been confirmed. His only other med is Ativan [address] Monson indicates that Paul's father had been giving him some form of marijuana product, but this lead to more agitation, which is why she restarted the ativan. She describes that his negative symptoms have really impaired his life, and he is unable to achieve any life goals, as he does nothing at home and has no structure. She has wondered about a trial of Clozaril, but is concerned that he will not comply with the blood draws. His next appt is 11/28 at 2:20. Impression Received haldol decanoate 100 mg on 11/10/2016, at a higher dose, and has been restarted on Depakote. credit risk manager is working toward arranging OP injections with Dr. Monson. Family meeting with parents is scheduled for 11/15/2016, as the family concerned about taking him back to their home. Will continue PO haldol for now as well, adjusting dose based on 24 hr use with prns. We are using Ativan as needed here, but will not recommend ongoing use as an outpatient due to substance abuse and history of oversedation. Patient is minimizing symptoms but this is true of his interactions with all of his providers as an OP, but is seems clear that he remains psychotic and without insight, so will require ongoing inpatient care until he can be safely transitioned back home. Continued Inpatient Care The patient continues to require inpatient care due to the severity of his condition and the risk of harm to self and others if discharged. Plan (1) Schizophrenia 11/09- Get records from the [facility] psych clinic to determine dose of Haldol Decanoate and when he last received the shot. Will order Haldol 10 mg by mouth or IM here as needed for psychosis. We'll get an EKG as he had high blood pressure and abnormal rhythm in the emergency room. Involved caser shoe parts and explore ways to increase structure at home. Patient states he may be willing to attend [facility], and says he is already attending psych rehabilitation once a week. Family meeting with parents. 11/10 - Meds clarified with Dr. Monson - Administer haldol dec 100 mg. IM today and q 4 weeks - Add haldol 5 mg. po BID until dec therapeutic - Reality orientation - Attend group and individual therapy as tolerated - Schedule family meeting to discuss disposition 11/11 - Continue current meds 11/12 - added depakote er at 250mg bid, first dose morning of 11/12 - as adjunctive med in general and with aim of alleviating agitation 11/13 -raise depakote er to 500mg bid, starting with evening 11/13 dosage - family meeting scheduled for 11/14 11/14 - Continue current medications. Family meeting tomorrow to discuss concerns about safety at home. 11/15 - Family meeting with parents today. To discuss discharge planning, recommendations to abstain from cannabis (patient states father is buying him THC oil), and ways to improve treatment compliance with medications and CPAP. - Depakote trough level will be due 11/19/2016. (2) Antisocial personality disorder (3) Depression 11/09- Continue to monitor for symptoms of depression here. Although he denies feeling depressed today, his affect is quite flat, which could be due to his primary thought disorder. In the past has been treated with antidepressants, but denies that he is on any currently, and we'll need to coordinate care with his outpatient provider to determine his course of treatment since we last saw him a year and a half ago. (4) Seizure We'll request records from outpatient neurologist, Dr. Escoto. (5) Sleep apnea 11/09- Patient has been diagnosed with sleep apnea and should be using CPAP, but has been noncompliant. We'll need to explore further with his parents. 11/10 - Continue to encourage patient to accept cpap 11/11 - Patient accepted Cpap, but seal is leaky 10/20 bradley. Encouraged to trim. - Will need follow up with pcp (6) Heroin abuse 11/09- Patient reports using IV heroin 2 months ago. He has a long history of polysubstance abuse. Would recommend avoiding prescription of controlled substances. Will discuss his current Ativan prescription with Dr. Castano. 11/10 - Will DC ativan in favor of haldol BID, as ativan was restarted by Dr. Monson 10/20 agitation (7) Cannabis abuse Patient was provided education about the risks of cannabis use, specifically that it can worsen psychotic illness, and that he should not use hallucinogens. He shows poor insight and understanding. We'll need to have family meeting with parents to further discuss this, as the patient states his father is providing him with acquitted THC. (8) Obesity Healthy diet, recommend exercise and weight loss, consider dietitian consult. Discharge / Aftercare Planning Primary Care Physician: Name: Dr. Ayon Phone Number: [phone] Appointment Notes: as needed -[address], [address] [place], [place] Psychiatrist: Name: Dr Monson [facility] Phone Number: [phone] Date of Appointment: Nov 28, 2016 Time of Appointment: 220 pm Therapist: Name: zuleika Gas Desulfurizer: Name: Rosanna Boggs through [facility] Phone Number: [phone] Appointment Notes: Rosanna is referring pt for [facility] Partial or Psych Rehab: Name: [facility] Psych Rehab referral pending Visit Code E&M Code: 48015 Inventory Assets Strengths: Supportive family Needs: Compliance with treatment recommendations Risk Factors Assessment Male: Yes : No /single/: Yes Health problems: Yes Mental Health Diagnoses: Yes Substance use disorders: Yes Previous attempt: Yes Previous psychiatric stay: Yes Smoker: No Protective Factors Assessment Anabaptist beliefs: No : No Responsible for young children: No Employed: No Stable relationships: No Supportive family: Yes Absence of risk factors above: No (patient admits to a fight with his father prior to admission) Data Vital Signs Last 24 Hrs: Date Time Temp Pulse Resp B/P Pulse Ox O2 Delivery O2 Flow Rate FiO2 11/15/16 06:57 97 Room Air 11/15/16 06:56 36.4 69 18 112/76 91 130/90 11/14/16 22:52 94 11/14/16 09:37 95 Room Air Meds Administered Last 24 Hrs: Meds Administered (Past 24Hrs) Medications (Trade) Dose Ordered Sig/Deonte Route Start Time Stop Time Status Last Admin Dose Admin Divalproex Sodium (Depakote Extended Rel Tab) 500 mg BID PO 11/13/16 22:00 12/13/16 21:59 11/15/16 08:35 500 MG Problem Qualifiers (1) Schizophrenia: Schizophrenia type: paranoid schizophrenia Qualified Codes: F20.0 - Paranoid schizophrenia (2) Depression: Depression Type: other depression Qualified Codes: F32.89 - Other specified depressive episodes
--- NOTE | 2016-11-15 17:08 | Medical Student: BHU Only ---
Psychiatric Progress Note Date of Service: Nov 15, 2016. Interval History: Mr. Paul Perla Jr is a 31 yo male with schizophrenia who was voluntarily admitted to the [facility] on 11/09/16 after his family brought him to the ER for "aggressive behaviors." Paul expressed interest to get back on medications at the time of admission. CC: "better" Subjective: Paul was seen and assessed during a family meeting. His mother, Crystal, and his father, Paul Thomas, were in attendance. During the family meeting , Paul reported that his move is improved since his admission, and he feels that "now that I am on the right medication, I am good." He denies any medication side effects, suicidal ideations, homicidal ideations, or hallucinations. Paul desires to be discharged tomorrow, however he expressed concern during the family meeting that his father wants him to stay in the hospital longer. Paul is agreeable to outpatient psych rehabilitation 2-3 times per week. His father is concerned that he does not want his son to be discharged before he his ready because he had a bad experience following a previous inpatient hospital admission. He also worries about his son's lack of social interactions and reports that the son uses his MP3 player with headphones too often. His mother is concerned about finding the best medication regimen and wonders whether or not he should be started on an antipsychotic as well as the recently restarted Depakote, upon discharge. She also wants her son to start seeking regular employment. Both his parents agree that Paul must sign a contract with them before discharge to return to their home. Interval progress was reviewed with nursing. Per the staff, he refused all groups yesterday and this morning. He continues to walk laps in the hallway and spends most of his time isolated in his room. He was given a dose of Ativan on 11/14/16 for anxiety, which appeared effective. ROS: 10 point ROS negative Mental Status Exam: Appearance: 31 year old male, dressed in a tshirt and sweatpants, who appears his stated age. Alert, oriented, and cooperative. Eye Contact: Fair. Motor: Steady gait during laps in the U. Sitting during the interview. Speech: Normal rate, low volume, and normal tone. Affect: Blunted Mood: "better" Thought Process: [place]. Eager to be discharged. Thought content: Denies paranoid feelings that he had at admission Perception: denies visual or auditory hallucinations Cognition: intact recent and remote memory. Impaired attention and concentration during the family meeting. Occasionally speaks in Gibralt[place] to his parents. Intelligence: average to below average Insight: impaired. Lacks insight into his disease and states "I don't have any problems" Judgement: impaired Vital Signs: Date Time Temp Pulse Resp B/P Pulse Ox O2 Delivery O2 Flow Rate FiO2 11/15/16 09:24 97 Room Air 11/15/16 06:57 97 Room Air 11/15/16 06:56 36.4 69 18 112/76 91 130/90 11/14/16 22:52 94 Meds Administered (Past 24Hrs): Medications (Trade) Dose Ordered Sig/Deonte Route Start Time Stop Time Status Last Admin Dose Admin Divalproex Sodium (Depakote Extended Rel Tab) 500 mg BID PO 11/13/16 22:00 12/13/16 21:59 11/15/16 08:35 500 MG Impression: Mr. Paul Perla Jr is a 31 yo male with paranoid schizophrenia who appears to be responding well to Depakote. Differential diagnosis should include schizoaffective disorder, medication/ substance- induced psychotic disorder, psychotic disorder due to another medical condition , or mood disorder with psychotic features. He currently does not display positive symptoms of schizophrenia such as hallucinations, delusions, bizarre posturing, muscle rigidity, stereotyped movements, or disorganized speech. He displays predominantly negative symptoms including anhedonia, flat affect, poor attention, and lack of interest in socialization, making a diagnosis of schizophrenia most likely. Given his history of polysubstance abuse and oversedation, controlled substances should not be recommended as an outpatient. Typical treatment would include a first generation antipsychotic medication such as chlorpromazine, fluphenazine. haloperidol, or perphenazine. Paul and his parents perceive no benefit from current Haloperidol IM dose. Plan: (1) Schizophrenia -Continue depakote 500mg BID -Consider stopping haldol 100 mg IM q 4 weeks because patient and family perceive no benefit from his medication. Last dose given 11/10/16. -Outpatient psychiatry f/u appointment with Dr. Monson on 11/28/16 at 14:20. -Provided family education on the necessity of monthly blood draws while on Depakote. -Depakote trough level due 11/19/16 -Stop cannabis (THC oil). Provided family education on how THC may interfere with other medications and exacerbate psychotic illness -Upon discharge, write a family contract that includes Paul's compliance to: ( 1) take medications daily as distributed by his mother, Crystal (2) attend outpatient psych rehab 2-3 times per week (3) maintain open communication with his parents about his daily mood -Recommend family therapy as part of outpatient psych rehabilitation (2) Antisocial personality disorder -Came management is recommending [employer] to assist with help towards future employment opportunities (3) Depression -Flat affect today, but denies feeling depressed. -Not currently taking any antidepressants -Monitor for post-psychotic depression after discharge, as he is at risk of developing a major depressive episode after discharge -Follow up with outpatient psychiatrist (4) Seizure -Followed by Dr. Escoto, neurology (5) Sleep Apnea -Encourage use of CPAP every night -Encourage good sleep hygiene -Follow up with PCP after discharge (6) Heroin Abuse -Patient denies recent IV heroin use. -Recommend avoiding prescription of controlled substances -Outpatient psychiatry follow up to monitor for polysubnstance abuse (7) Cannabis abuse -Stop cannabis (THC oil). His father was previously providing him with this medication because he thought it would help his son stay calm -Provided family education on how THC may interfere with other medications and exacerbate psychotic illness (8) Obesity -Recommend exercise and weight loss -Consider dietitian consult
[2016-11-15] MEDS: LORAZEPAM 2 MG TAB PO PRN (22:07)
[2016-11-15 22:24] VITALS: PULSE 79; O2SAT 95
[2016-11-16 06:59] VITALS: BP_SYST 116; BP_SYST 130; BP_DIAS 75; BP_DIAS 90; PULSE 90; PULSE 94; TEMP 36.4
[2016-11-16 07:00] VITALS: O2SAT 95
[2016-11-16] MEDS: DIVALPROEX 500 MG EXTENDED RELEASE TAB PO SCH (08:46)
[2016-11-16] MEDS: HALOPERIDOL 5 MG TAB PO SCH (08:46)
[2016-11-16] MEDS: TRIHEXYPHENIDYL HCL 5 MG TAB PO SCH (08:47)
[2016-11-16] MEDS ORDERED: TRIH5TAB3 PO (09:17)
[2016-11-16] MEDS ORDERED: DPKSR500 PO (09:17)
[2016-11-16] MEDS ORDERED: HLD5 PO (09:17)
[2016-11-16] MEDS ORDERED: HALO100I IM (09:17)
--- NOTE | 2016-11-16 09:29 | Discharge Instructions ---
Discharge Information Report Includes Report will include the: Discharge Instructions & Summary Admission Admission Date / Time: Nov 09, 2016 at 04:03 Reason for Admission: Paranoia, Increased Anxiety, Poor Adl's Discharge Discharge Diagnosis / Problem: Paranoid schizophrenia Condition at Discharge: Fair Discharge Goals Goal(s): Decrease discomfort, Improve disease control, Prevent Disease Progression Activity Recommendations Activity Limitations: resume your previous activity . Instructions / Follow-Up Instructions / Follow-Up . SPECIAL CARE INSTRUCTIONS: 1. Follow through with your scheduled aftercare appointments. If unable to keep an appointment, please call to reschedule. 2. Take your medication only as prescribed. Medication should not be changed or stopped without the approval of your doctor. In the event of worsening symptoms or concerns about side effects, contact your doctor immediately. 3. Utilize new healthy coping skills, anger management skills, and stress management skills learned during your hospitalization. Journal feelings and process them with a support person. Identify stressors or situations that may result in relapse, deterioration or inappropriate behaviors and develop a plan to deal with those issues. 4. If your coping skills are ineffective and you are in crisis, contact your outpatient providers for direction. If unable to reach your providers, please call the CAN HELP LINE AT or go to the closest Emergency Room. 5. Avoid alcohol and un-prescribed drugs. 6. You have been provided with the Mental Health Advance Directives Pamphlet for your review. AFTERCARE APPOINTMENTS: * Please call your insurance company prior to your scheduled appointment to confirm your aftercare providers are covered. Take your insurance information to your appointments. . Discharge / Aftercare Planning Primary Care Physician: Name: Dr. Ayon Phone Number: [phone] Appointment Notes: as needed -[address], [address] [place], [place] Psychiatrist: Name: Dr Monson through [facility] Phone Number: [phone] Date of Appointment: Nov 28, 2016 Time of Appointment: 220 pm Therapist: Name Of Therapist: zuleika Leather Production Worker: Name: Rosanna Boggs through [facility] Phone Number: [phone] Appointment Notes: Rosanna is referring pt for [employer] [employer] Partial or Psych Rehab: Name: [facility] referral pending Phone Number: [phone] . Follow-Up Care Plan for Follow-Up Care: The [facility] Monson and will be going to Psych Rehab Current Hospital Diet Patient's current hospital diet: Regular Diet Discharge Diet Recommended Diet: Regular Diet Procedures Procedures Performed: No Pending Studies Pending Studies at Discharge: No Medical Emergencies . Who to Call and When: Medical Emergencies: For questions or emergencies related to your hospital stay, please contact the Inpatient Behavioral Health Unit at [phone]. A supervisor matrix is on-call 10/04 for the Behavioral Health Unit for emergencies At any time you feel your situation is an emergency, you may also call 911 immediately. . Non-Emergent Contact Non-Emergency issues call your: Psychiatrist, Therapist Advance Directives Existing Advance Directive: No Do You Have an Existing Mental: No Existing Living Will: No Existing Power of Panel Cutter: No Advance Directives Info Given: To Pt/S.O. Discharge Summary Admission HPI Per the Admitting provider: The patient is known from previous hospitalization here in 2014, at which time he had depression and paranoia, and was a limited historian, so records had to be obtained from his outpatient psychiatrist. He was on sertraline which was increased, and was continued on multiple other psychotropic medications, including Abilify, Wellbutrin SR, gabapentin, propanolol, and topiramate. He was noted to be desaturating to the 60s at night, so was placed on oxygen and then CPAP, after it was determined that he had a sleep study in 2012 and was diagnosed with sleep apnea. He was referred to follow-up with a sleep physician, and arrangements were made for him to get CPAP at the [facility], where he was living at the time. Information was obtained from his neurologist , whom he had told he was abusing salvia. A family meeting was held with his mother, and he was ultimately discharged [facility] the [facility]. He was also hospitalized at [facility] in 2015 for psychosis after presenting to our emergency room with hallucinations and agitation with his parents, requesting admission. Per records, he presented to the ER last night with complaints of "mental instability," stating he had been arguing with his father, and needed to come into the psychiatric unit. He received Ativan 2 mg in the emergency room. He had cardiac monitoring in the emergency room due to an irregular rhythm, which showed an occasional PAC. He told the emergency room staff he was only taking Ativan at home, and thought he needed additional psychiatric medication. 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 I asked to spend a few days in the hospital, I couldn't handle it." He says he is only on Ativan at home, "it's not enough." Asked about Rx in chart for Haldol decanoate, which he says he does get monthly, but not sure when last one was. Mood is "straight, it's been good." He reported anergia to the nurse, and says he does "nothing, I don't do anything." He says he stays at home all day, and goes to psych rehab once a week. He reports 8 hours of sleep a night, and denies SI and HI. He says he got out of the [facility] a few weeks ago, and has been following up at [facility] with Dr. Posada, although records indicate he sees Dr. Monson at [facility]. He denies that he has a therapist, but has a CM, Rosanna. He denies hearing voices, but has long pauses at times. He says he is slowed because "I'm burnt out from drug use," but says he doesn't need rehab or substance abuse treatment, because "I'm not bad for you." He denies abusing pills, but says he takes Ativan daily which is prescribed by Dr. Monson, which he says was started at [facility] in Dec. He says he takes it twice a day, although the med rec states once daily. He says his father "gets me medicinal marijuana from the internet," which he uses in liquid form and ingests twice a day. He also admits to using heroin, last use 3 months ago, IV. He says he wants to "maybe get a treatment plan, [place]." "I want to be medicated as soon as possible, really, I was Hugodon...I want lithium. Valium, Abilify." Hospital Course (1) Schizophrenia 11/09- Get records from the [facility] psych clinic to determine dose of Haldol Decanoate and when he last received the shot. Will order Haldol 10 mg by mouth or IM here as needed for psychosis. We'll get an EKG as he had high blood pressure and abnormal rhythm in the emergency room. Involved counter caser and explore ways to increase structure at home. Patient states he may be willing to attend [facility], and says he is already attending psych rehabilitation once a week. Family meeting with parents. 11/10 - Meds clarified with Dr. Monson - Administer haldol dec 100 mg. IM today and q 4 weeks - Add haldol 5 mg. po BID until dec therapeutic - Reality orientation - Attend group and individual therapy as tolerated - Schedule family meeting to discuss disposition 11/11 - Continue current meds 11/12 - added depakote er at 250mg bid, first dose morning of 11/12 - as adjunctive med in general and with aim of alleviating agitation 11/13 -raise depakote er to 500mg bid, starting with evening 11/13 dosage - family meeting scheduled for 11/14 11/14 - Continue current medications. Family meeting tomorrow to discuss concerns about safety at home. 11/15 - Family meeting with parents today. To discuss discharge planning, recommendations to abstain from cannabis (patient states father is buying him THC oil), and ways to improve treatment compliance with medications and CPAP. - Depakote trough level will be due 11/19/2016. (2) Antisocial personality disorder (3) Depression 11/09- Continue to monitor for symptoms of depression here. Although he denies feeling depressed today, his affect is quite flat, which could be due to his primary thought disorder. In the past has been treated with antidepressants, but denies that he is on any currently, and we'll need to coordinate care with his outpatient provider to determine his course of treatment since we last saw him a year and a half ago. (4) Seizure We'll request records from outpatient neurologist, Dr. Escoto. (5) Sleep apnea 11/09- Patient has been diagnosed with sleep apnea and should be using CPAP, but has been noncompliant. We'll need to explore further with his parents. 11/10 - Continue to encourage patient to accept cpap 11/11 - Patient accepted Cpap, but seal is leaky 10/20 bradley. Encouraged to trim. - Will need follow up with pcp (6) Heroin abuse 11/09- Patient reports using IV heroin 2 months ago. He has a long history of polysubstance abuse. Would recommend avoiding prescription of controlled substances. Will discuss his current Ativan prescription with Dr. Castano. 11/10 - Will DC ativan in favor of haldol BID, as ativan was restarted by Dr. Monson 10/20 agitation (7) Cannabis abuse Patient was provided education about the risks of cannabis use, specifically that it can worsen psychotic illness, and that he should not use hallucinogens. He shows poor insight and understanding. We'll need to have family meeting with parents to further discuss this, as the patient states his father is providing him with acquitted THC. (8) Obesity Healthy diet, recommend exercise and weight loss, consider dietitian consult. Risk Factors Assessment Male: Yes : No /single/: Yes Health problems: Yes Mental Health Diagnoses: Yes Substance use disorders: Yes Previous attempt: Yes Previous psychiatric stay: Yes Smoker: No Protective Factors Assessment Sikhism beliefs: No : No Responsible for young children: No Employed: No Stable relationships: No Supportive family: Yes Absence of risk factors above: No (patient admits to a fight with his father prior to admission) Day of Discharge Assessment COURSE OF HOSPITALIZATION: During the patient's 7 day stay, he was given his next injection of Haldol to Lázaro weight, 100 mg on November 10. He was also started on Artane 5 mg twice a day due to concerns for akathisia as he was noted to be pacing. He was started on Depakote 500 mg twice a day to target his anger issues which were a component of the situation precipitating admission. His parents were involved in his treatment, attended a family meeting. They were concerned that the patient has recently been unstable, requiring multiple hospitalizations. When he is unstable, he is angry and threatening and parents wanted him to be more stable before coming home. At the time of the meeting on November 15, the parents thought that he was doing better and the patient agreed he felt calmer with his current medication regimen. He is to be wearing a C Pap at home for obstructive sleep apnea but had not been doing so. He did agree to wear it here although refused it some nights. He did not participate in groups and was paranoid throughout his stay. Early in his stay, he had used a culturally insensitive terms with staff, felt that people were watching him and at one point demanded to be transferred to a medical bed during there was something wrong with him. Overall by the end of his hospitalization, his paranoia was less evident although he has chronically been poorly communicative about his symptoms both in the hospital and as an outpatient. He was encouraged in the family meeting to try to communicate better with his parents and with his providers about how he was doing DAY OF DISCHARGE ASSESSMENT: Today the patient is requesting discharge. He feels ready to go home and states a willingness to take his medications, with his mother helping him and also a commitment to mental wearing his C Pap more frequently. We reviewed one more time the importance of wearing his C Pap for good oxygenation at night as well as impact to his mental illness. He continues to deny auditory or visual hallucinations, suicidal or homicidal ideation. Today he is casually dressed although somewhat disheveled. His eye contact is good although his eyes dart around the room as if responding to internal stimuli. Affect is flat and not necessarily congruent with his stated mood of "good". Gait and station are within normal limits. Speech is minimal but of normal rate volume and tone. Thoughts are organized, goal directed and without overt evidence of psychosis. Intelligence is estimated to be low average. Insight and judgment are improved over admission. Laboratory 11/09/16 01:27 11/09/16 01:27 Test 11/09/16 01:27 11/09/16 02:00 Red Blood Count 5.13 M/uL (4.7-6.1) Mean Corpuscular Volume 84.2 fL (80-100) Mean Corpuscular Hemoglobin 28.7 pg (25-34) Mean Corpuscular Hemoglobin Concent 34.0 g/dl (32-36) RDW Standard Deviation 38.6 fL (36.4-46.3) RDW Coefficient of Variation 12.7 % (11.5-14.5) Mean Platelet Volume 10.9 fL (7.4-10.4) Anion Gap 11.0 mmol/L (3-11) Est Creatinine Clear Calc Drug Dose 160.3 ml/min Estimated GFR () 130.8 Estimated GFR (Non- 112.9 BUN/Creatinine Ratio 28.9 (10-20) Calcium Level 8.5 mg/dl (8.5-10.1) Total Bilirubin 0.3 mg/dl (0.2-1) Direct Bilirubin < 0.1 mg/dl (0-0.2) Aspartate Amino Transf (AST/SGOT) 19 U/L (15-37) Alanine Aminotransferase (ALT/SGPT) 37 U/L (12-78) Alkaline Phosphatase 56 U/L (45-117) Total Protein 6.8 gm/dl (6.4-8.2) Albumin 3.6 gm/dl (3.4-5.0) Thyroid Stimulating Hormone (TSH) 3.130 uIu/ml (0.300-4.500) Salicylates Level < 1.7 mg/dl (2.8-20) Acetaminophen Level < 2 ug/ml (10-30) Ethyl Alcohol mg/dL < 3.0 mg/dl (0-3) Urine Color YELLOW Urine Appearance CLEAR (CLEAR) Urine pH 5.0 (4.5-7.5) Urine Specific [place] 1.033 (1.000-1.030) Urine Protein NEG (NEG) Urine Glucose (UA) NEG (NEG) Urine Ketones NEG (NEG) Urine Occult Blood NEG (NEG) Urine Nitrite NEG (NEG) Urine Bilirubin NEG (NEG) Urine Urobilinogen NEG (NEG) Urine Leukocyte Esterase SMALL (NEG) Urine WBC (Auto) 10-30 /hpf (0-5) Urine RBC (Auto) 0-4 /hpf (0-4) Urine Hyaline Casts (Auto) 1-5 /lpf (0-5) Urine Epithelial Cells (Auto) >30 /lpf (0-5) Urine Bacteria (Auto) NEG (NEG) Urine Opiates Screen NEG (NEG) Urine Methadone, Qualitative NEG (NEG) Urine Barbiturates NEG (NEG) Urine Phencyclidine (PCP) Level NEG (NEG) Ur Amphetamine/Methamphetamine NEG (NEG) MDMA (Ecstasy) Screen NEG (NEG) Urine Benzodiazepines Screen NEG (NEG) Urine Cocaine Metabolite NEG (NEG) Urine Marijuana (THC) NEG (NEG) Total Time Total Time Spent (min): Greater than 30 minutes Total Time Included: examination of the patient, discharge planning, medication reconciliation, communication with other providers Tobacco Cessation at Discharge FDA approved Prescription: non-smoker Problem Qualifiers (1) Schizophrenia: Schizophrenia type: paranoid schizophrenia Qualified Codes: F20.0 - Paranoid schizophrenia (2) Depression: Depression Type: other depression Qualified Codes: F32.89 - Other specified depressive episodes
== END 2016-11-16 10:49 | disposition home or self-care (01) | DRG 885 ==
LOC: EDBD 01:08 → C.EDA 01:09 → C.MHU 04:03
PROVIDERS: ADMIT Psychiatry & Neurology Psychiatry; ATTEND Psychiatry & Neurology Psychiatry
DX: F20.0 Paranoid schizophrenia (principal); Z68.41 Body mass index [BMI] 40.0-44.9, adult; F32.89 Other specified depressive episodes; E66.9 Obesity, unspecified; F60.2 Antisocial personality disorder; F12.10 Cannabis abuse, uncomplicated; F11.10 Opioid abuse, uncomplicated; G47.33 Obstructive sleep apnea (adult) (pediatric); I10 Essential (primary) hypertension; F90.9 Attention-deficit hyperactivity disorder, unspecified type; F41.9 Anxiety disorder, unspecified; Z87.891 Personal history of nicotine dependence; Z86.69 Personal history of other diseases of the nervous system and sense organs; Z79.899 Other long term (current) drug therapy

== ENCOUNTER → 2016-12-26 | Outpatient (CLI) | payer OTHER ==
[~2016-12-26] MED LIST: AZITTAB PO; DPKSR500 PO; HALO100I IM; HLD5 PO; LITH1TAB PO; NYSCR30 EXT; PROP10TA7 PO; TRIH5TAB3 PO; VNTHFA/IN INH
[2016-12-26 14:04] LABS: BLOOD UREA NITROGEN 17 mg/dl (7-18); BUN/CREATININE RATIO 15.6 (10-20); CALCIUM 9.5 mg/dl (8.5-10.1); CARBON DIOXIDE 29 mmol/L (21-32); CHLORIDE 103 mmol/L (98-107); GLUCOSE 127 mg/dl (70-99); POTASSIUM 4.1 mmol/L (3.5-5.1); SODIUM 139 mmol/L (136-145)
== END | disposition home or self-care (01) ==
LOC: C.LAB1850 11:17
PROVIDERS: ATTEND Psychiatry & Neurology Psychiatry
DX: Z51.81 Encounter for therapeutic drug level monitoring (principal); Z79.899 Other long term (current) drug therapy

== ENCOUNTER 2017-01-31 21:28 | Emergency (ER) | payer OTHER ==
[~2017-01-31] VITALS: Ht 180.3 cm; Wt 135.8 kg
[~2017-01-31 21:28] MED LIST changes: -AZITTAB PO; -LITH1TAB PO; -NYSCR30 EXT; -PROP10TA7 PO; -VNTHFA/IN INH
[2017-01-31 21:33] VITALS: Ht 180.3 cm; Wt 135.8 kg
[2017-01-31] MEDS ORDERED: PROP10TA7 PO (21:48)
[2017-01-31] MEDS ORDERED: LITH1TAB PO (21:48)
--- NOTE | 2017-01-31 21:57 | EMERGENCY ROOM VISIT NOTE ---
History Report prepared by Jose: Jordy Wallace Under the Supervision of: Dr. Gutierrez Robledo D.O. First contact with patient: 21:38 Chief Complaint: RESPIRATORY PROBLEMS Stated Complaint: BREATHING DIFFICULTY Nursing Triage Summary: Pt reports SOB, dizzy, difficulty sleeping, fatigue. denies cough. Ongoing for 3 weeks. denies chest pain. History of Present Illness The patient is a 31 year old male who presents to the Emergency Room with complaints of worsening shortness of breath starting about 3 weeks ago. He currently denies any pain. He denies cough, chest pain, or any other complaints. He has a history of asthma. He quit smoking cigarettes last year. Source of History: patient Onset: about 3 weeks ago Position: other (global) Symptom Intensity: No pain Quality: other (shortness of breath) Timing: worsening Associated Symptoms: No chest pain, No cough Review of Systems See HPI for pertinent positives and negatives. A total of ten systems were reviewed and were otherwise negative. Past Medical & Surgical Medical Problems: (1) Antisocial personality disorder (2) Anxiety disorder (3) Cannabis abuse (4) Depression (5) Heroin abuse (6) Hypertension Nos (7) Obesity (8) Schizophrenia (9) Sleep apnea Family History No pertinent family history Social History Smoking Status: Former Smoker Alcohol Use: occasionally Drug Use: marijuana Marital Status: single Housing Status: lives with family Occupation Status: employed Current/Historical Medications Scheduled [place] Carbonate Ext Rel (Lithobid Ext Rel), 450 MG PO DAILY Propranolol (Inderal), Unknown Dose PO DAILY Allergies Coded Allergies: Poison [place] Extract/Poison [place] Extra (Unverified Allergy, Severe, RASH, ) Physical Exam Vital Signs Date Time Temp Pulse Resp B/P Pulse Ox O2 Delivery O2 Flow Rate FiO2 01/31/17 21:36 94 Room Air 01/31/17 21:33 36.6 76 18 134/94 94 Room Air Physical Exam GENERAL: Awake, alert, well-appearing, in no distress HENT: Normocephalic, atraumatic. Oropharynx unremarkable. EYES: Normal conjunctiva. Sclera non-icteric. NECK: Supple. No nuchal rigidity. FROM. No JVD. RESPIRATORY: Decreased breath sounds. CARDIAC: Regular rate, normal rhythm. Extremities warm and well perfused. Pulses equal. ABDOMEN: Soft, non-distended. No tenderness to palpation. No rebound or guarding. No masses. RECTAL: Deferred. MUSCULOSKELETAL: Chest examination reveals no tenderness. The back is symmetrical on inspection without obvious abnormality. There is no CVA tenderness to palpation. No joint edema. LOWER EXTREMITIES: Calves are equal size bilaterally and non-tender. No edema. No discoloration. NEURO: Normal sensorium. No sensory or motor deficits noted. SKIN: No rash or jaundice noted. Medical Decision & Procedures ER Provider Diagnostic Interpretation: X-ray: Per my interpretation, radiologist review. CHEST ONE VIEW PORTABLE CLINICAL HISTORY: Shortness of breath. COMPARISON STUDY: 05/07/2015 FINDINGS: The cardiac and mediastinal contours are normal. There is no evidence of focal pulmonary consolidation. There is no evidence of failure. No pleural effusions are visualized.[ Differential attenuation of the hemithoraces is felt to be secondary to technical factors. IMPRESSION: AP portable study. No acute findings. Electronically signed by: Maik Mcfadden M.D. 01/31/2017 10:08 PM Dictated Date/Time: 01/31/2017 10:07 PM Medications Administered Medications (Trade) Dose Ordered Sig/Deonte Route Start Time Stop Time Status Last Admin Dose Admin Albuterol/ Ipratropium (Duoneb) 3 ml STK-MED ONCE .ROUTE 01/31/17 22:04 01/31/17 22:05 DC 01/31/17 22:04 3 ML ED Course 2137: The patient was evaluated in room B04B. A complete history and physical exam was performed. 2203: DuoNeb 3 ml INH 2223: I reevaluated the patient. Discussed results and discharge instructions: He verbalized understanding and agreement. The patient is ready for discharge. Medical Decision Differential diagnosis includes but is not limited to asthma, upper respiratory infection, bronchitis, pneumonia. will treat for bronchitis Impression Primary Impression: Bronchitis Scribe Attestation The scribe's documentation has been prepared under my direction and personally reviewed by me in its entirety. I confirm that the note above accurately reflects all work, treatment, procedures, and medical decision making performed by me. Departure Information Dispostion Home / Self-Care Prescriptions Azithromycin (ZITHROMAX Z-AVILA) 250 Mg Tab 0 PO UD, #1 PKT Prov: Gutierrez Robledo, DO 01/31/17 Albuterol Hfa (VENTOLIN HFA) 200 Puffs/60474 Mcg Aers 2-4 PUFFS INH Q6H, #1 INHALER Prov: Gutierrez Robledo, DO 01/31/17 Referrals No Doctor, Assigned (PCP) Forms HOME CARE DOCUMENTATION FORM, IMPORTANT VISIT INFORMATION, WORK / SCHOOL INSTRUCTIONS Patient Instructions Bronchitis Acute, My [facility]
[2017-01-31] MEDS ORDERED: ALBUT/IPRATROP 3MG/0.5MG NEB 3 ML VIAL ONE (22:04)
--- NOTE | 2017-01-31 22:09 | DIAGNOSTIC IMAGING REPORT ---
CHEST ONE VIEW PORTABLE CLINICAL HISTORY: Shortness of breath. COMPARISON STUDY: 05/07/2015 FINDINGS: The cardiac and mediastinal contours are normal. There is no evidence of focal pulmonary consolidation. There is no evidence of failure. No pleural effusions are visualized.[ Differential attenuation of the hemithoraces is felt to be secondary to technical factors. IMPRESSION: AP portable study. No acute findings. Electronically signed by: Maik Mcfadden M.D. 01/31/2017 10:08 PM Dictated Date/Time: 01/31/2017 10:07 PM
[2017-01-31] MEDS ORDERED: AZITTAB PO (22:38)
[2017-01-31] MEDS ORDERED: VNTHFA/IN INH (22:38)
[2017-01-31 22:48] VITALS: BP 131/93; PULSE 80; TEMP 36.6; O2SAT 94
[2017-02-01] MEDS ORDERED: ALBUT/IPRATROP 3MG/0.5MG NEB 3 ML VIAL INH SCH
== END 2017-01-31 22:49 | disposition home or self-care (01) ==
LOC: C.EDB 21:30
DX: J40 Bronchitis, not specified as acute or chronic (principal); J45.909 Unspecified asthma, uncomplicated; F60.2 Antisocial personality disorder; F41.9 Anxiety disorder, unspecified; F12.10 Cannabis abuse, uncomplicated; F11.10 Opioid abuse, uncomplicated; F32.9 Major depressive disorder, single episode, unspecified; I10 Essential (primary) hypertension; E66.9 Obesity, unspecified; F20.9 Schizophrenia, unspecified; G47.30 Sleep apnea, unspecified; Z87.891 Personal history of nicotine dependence

== ENCOUNTER 2017-02-03 04:54 | Emergency (ER) | payer OTHER ==
[~2017-02-03] VITALS: Ht 180.3 cm; Wt 135.8 kg
[~2017-02-03 04:54] MED LIST changes: +AZITTAB PO; -DPKSR500 PO; -HALO100I IM; -HLD5 PO; +LITH1TAB PO; +PROP10TA7 PO; -TRIH5TAB3 PO; +VNTHFA/IN INH
[2017-02-03 04:58] VITALS: TEMP 36.5; Ht 180.3 cm; Wt 135.8 kg
--- NOTE | 2017-02-03 05:07 | EMERGENCY ROOM VISIT NOTE ---
History Report prepared by Marlynibsarah: Slim Foster Under the Supervision of: Dr. Gutierrez Robledo D.O. First contact with patient: 05:02 Chief Complaint: MENTAL HEALTH EVALUATION Stated Complaint: DEPRESSION,ANXIETY,PROBLEMS BREATHING History of Present Illness The patient is a 31 year old male who presents to the Emergency Room for an acute mental health evaluation. The patient complains of persistent depression and anxiety for which he wishes to be admitted as an inpatient. The patient denies suicidality. He has been having trouble sleeping secondary to his symptoms. The patient was recently diagnosed with bronchitis. He has been compliant with his medications. The patient's breathing has improved but is not back to baseline. He has been compliant with his [place]. Source of History: patient Onset: today Position: other (psyche) Quality: other (mental health evaluation) Timing: other (acute) Note: Negative for SI. Review of Systems See HPI for pertinent positives and negatives. A total of ten systems were reviewed and were otherwise negative. Past Medical & Surgical Medical Problems: (1) Antisocial personality disorder (2) Anxiety disorder (3) Cannabis abuse (4) Depression (5) Heroin abuse (6) Hypertension Nos (7) Obesity (8) Schizophrenia (9) Sleep apnea Family History No pertinent family history Social History Smoking Status: Former Smoker Alcohol Use: occasionally Drug Use: marijuana Marital Status: single Housing Status: lives with family Occupation Status: employed Current/Historical Medications Scheduled Azithromycin (Zithromax Z-Murali), 1 PKT PO UD [place] Carbonate Ext Rel (Lithobid Ext Rel), 450 MG PO DAILY Propranolol (Inderal), 10 MG PO DAILY Allergies Coded Allergies: Poison [place] Extract/Poison [place] Extra (Unverified Allergy, Severe, RASH, ) Physical Exam Vital Signs Date Time Temp Pulse Resp B/P Pulse Ox O2 Delivery O2 Flow Rate FiO2 02/03/17 04:58 36.5 76 20 128/84 93 Room Air Physical Exam GENERAL: Awake, alert, well-appearing, in no distress HENT: Normocephalic, atraumatic. Oropharynx unremarkable. EYES: Normal conjunctiva. Sclera non-icteric. NECK: Supple. No nuchal rigidity. FROM. No JVD. RESPIRATORY: Clear to auscultation. CARDIAC: Regular rate, normal rhythm. Extremities warm and well perfused. Pulses equal. ABDOMEN: Soft, non-distended. No tenderness to palpation. No rebound or guarding. No masses. RECTAL: Deferred. MUSCULOSKELETAL: Chest examination reveals no tenderness. The back is symmetrical on inspection without obvious abnormality. There is no CVA tenderness to palpation. No joint edema. LOWER EXTREMITIES: Calves are equal size bilaterally and non-tender. No edema. No discoloration. NEURO: Normal sensorium. No sensory or motor deficits noted. SKIN: No rash or jaundice noted. PSYCH: Anxious appearing. Medical Decision & Procedures Laboratory Results 02/03/17 05:55 Red Blood Count 5.15, Mean Corpuscular Volume 87.6, Mean Corpuscular Hemoglobin 29.1, Mean Corpuscular Hemoglobin Concent 33.3, Mean Platelet Volume 10.4, Neutrophils (%) (Auto) 51.1, Lymphocytes (%) (Auto) 37.6, Monocytes (%) (Auto) 7.0, Eosinophils (%) (Auto) 3.6, Basophils (%) (Auto) 0.6, Neutrophils # (Auto) 4.11, Lymphocytes # (Auto) 3.02, Monocytes # (Auto) 0.56, Eosinophils # (Auto) 0.29, Basophils # (Auto) 0.05 02/03/17 05:55 Test 02/03/17 05:25 02/03/17 05:40 02/03/17 05:55 Urine Color YELLOW Urine Appearance CLEAR (CLEAR) Urine pH 6.0 (4.5-7.5) Urine Specific [place] 1.026 (1.000-1.030) Urine Protein NEG (NEG) Urine Glucose (UA) NEG (NEG) Urine Ketones NEG (NEG) Urine Occult Blood NEG (NEG) Urine Nitrite NEG (NEG) Urine Bilirubin NEG (NEG) Urine Urobilinogen NEG (NEG) Urine Leukocyte Esterase NEG (NEG) Urine Opiates Screen NEG (NEG) Urine Methadone, Qualitative NEG (NEG) Urine Barbiturates NEG (NEG) Urine Phencyclidine (PCP) Level NEG (NEG) Ur Amphetamine/Methamphetamine NEG (NEG) MDMA (Ecstasy) Screen NEG (NEG) Urine Benzodiazepines Screen NEG (NEG) Urine Cocaine Metabolite NEG (NEG) Urine Marijuana (THC) NEG (NEG) Bedside Glucose 107 mg/dl (70-99) White Blood Count 8.04 K/uL (4.8-10.8) Red Blood Count 5.15 M/uL (4.7-6.1) Hemoglobin 15.0 g/dL (14.0-18.0) Hematocrit 45.1 % (42-52) Mean Corpuscular Volume 87.6 fL (80-100) Mean Corpuscular Hemoglobin 29.1 pg (25-34) Mean Corpuscular Hemoglobin Concent 33.3 g/dl (32-36) Platelet Count 234 K/uL (130-400) Mean Platelet Volume 10.4 fL (7.4-10.4) Neutrophils (%) (Auto) 51.1 % Lymphocytes (%) (Auto) 37.6 % Monocytes (%) (Auto) 7.0 % Eosinophils (%) (Auto) 3.6 % Basophils (%) (Auto) 0.6 % Neutrophils # (Auto) 4.11 K/uL (1.4-6.5) Lymphocytes # (Auto) 3.02 K/uL (1.2-3.4) Monocytes # (Auto) 0.56 K/uL (0.11-0.59) Eosinophils # (Auto) 0.29 K/uL (0-0.5) Basophils # (Auto) 0.05 K/uL (0-0.2) RDW Standard Deviation 41.8 fL (36.4-46.3) RDW Coefficient of Variation 13.0 % (11.5-14.5) Immature Granulocyte % (Auto) 0.1 % Immature Granulocyte # (Auto) 0.01 K/uL (0.00-0.02) Anion Gap 5.0 mmol/L (3-11) Est Creatinine Clear Calc Drug Dose 157.3 ml/min Estimated GFR () 123.0 Estimated GFR (Non- 106.1 BUN/Creatinine Ratio 23.1 (10-20) Calcium Level 8.4 mg/dl (8.5-10.1) Direct Bilirubin < 0.1 mg/dl (0-0.2) Aspartate Amino Transf (AST/SGOT) 21 U/L (15-37) Alanine Aminotransferase (ALT/SGPT) 41 U/L (12-78) Albumin 3.7 gm/dl (3.4-5.0) Ethyl Alcohol mg/dL < 3.0 mg/dl (0-3) Laboratory results reviewed by [facility] ED Course 0503: The patient was evaluated in room A6. A complete history and physical exam was performed. 0510: Case Management will speak with the patient about inpatient treatment. 0625: The patient is medically cleared. Mobile Crisis will be called in to see the patient. 0630: The patient is being signed out to Dr. Penaloza pending evaluation by [facility]. Medical Decision Differential diagnosis: Anxiety, depression, schizophrenia. Patient seen by case management, patient will have labs drawn and be seen by crisis counselor. Patient is currently not suicidal or homicidal. Patient is anxious. Medically stable at 632am Impression Primary Impression: Anxiety Additional Impression: Schizoaffective disorder Scribe Attestation The scribe's documentation has been prepared under my direction and personally reviewed by me in its entirety. I confirm that the note above accurately reflects all work, treatment, procedures, and medical decision making performed by me. Departure Information Dispostion Still a Patient Referrals No Doctor, Assigned (PCP) Patient Instructions My [facility] Problem Qualifiers Additional Impression: Schizoaffective disorder Schizoaffective disorder type: depressive Qualified Codes: F25.1 - Schizoaffective disorder, depressive type
[2017-02-03] MEDS ORDERED: AZITTAB PO (05:30)
[2017-02-03 05:48] LABS: URINE APPEARANCE CLEAR (CLEAR); URINE BILIRUBIN NEG (NEG); URINE COLOR YELLOW; URINE NITRITE NEG (NEG); URINE SPECIFIC GRAVITY 1.026 (1.000-1.030); UROBILINOGEN NEG (NEG)
[2017-02-03 05:53] LABS: MANUAL MICROSCOPIC REQUIRED? NO; REVIEW REQ? NO
[2017-02-03 06:05] LABS: BASO % 0.6 %; BASO ABS # 0.05 K/uL (0-0.2); COMPLETE YES; EOS % 3.6 %; HEMATOCRIT 45.1 % (42-52); IG% 0.1 %; LYMPH % 37.6 %; LYMPH ABS # 3.02 K/uL (1.2-3.4); MEAN CELL VOLUME 87.6 fL (80-100); MEAN CORPUSCULAR HEMOGLOBIN 29.1 pg (25-34); MEAN CORPUSCULAR HGB CONC 33.3 g/dl (32-36); MEAN PLATELET VOLUME 10.4 fL (7.4-10.4); NEUT % 51.1 %; PLATELET COUNT 234 K/uL (130-400); RED BLOOD COUNT 5.15 M/uL (4.7-6.1); WHITE BLOOD COUNT 8.04 K/uL (4.8-10.8)
[2017-02-03 06:09] LABS: BENZODIAZEPINE, URINE NEG (NEG); COCAINE,URINE NEG (NEG); PHENCYCLIDINE, URINE NEG (NEG)
[2017-02-03 06:23] LABS: ALT/SGPT 41 U/L (12-78); AST/SGOT 21 U/L (15-37); BLOOD UREA NITROGEN 22 mg/dl (7-18); BUN/CREATININE RATIO 23.1 (10-20); CALCIUM 8.4 mg/dl (8.5-10.1); CARBON DIOXIDE 29 mmol/L (21-32); CHLORIDE 106 mmol/L (98-107); CREATININE 0.94 mg/dl (0.60-1.40); GLUCOSE 93 mg/dl (70-99); POTASSIUM 4.2 mmol/L (3.5-5.1); SODIUM 140 mmol/L (136-145)
[2017-02-03 06:34] LABS: ALKALINE PHOSPHATASE 85 U/L (45-117)
--- NOTE | 2017-02-03 09:58 | EMERGENCY ROOM VISIT NOTE ---
ED Visit Note First contact with patient: 09:56 31-year-old male with depression was fully evaluated by Dr. Robledo and signed off to me at change of shift. I reevaluated the patient at 09:52. The patient is awaiting placement. He apparently told one of the nurses that he would go home and take an overdose. I asked him again and he confirmed that thought. He does not appear to be in any significant distress at this time. IMPRESSION: Depression
[2017-02-03 12:40] VITALS: BP 120/90; PULSE 82; O2SAT 96
== END 2017-02-03 12:40 ==
LOC: C.EDB 04:55 → C.EDA 12:40
DX: F41.9 Anxiety disorder, unspecified (principal); F25.1 Schizoaffective disorder, depressive type; F12.10 Cannabis abuse, uncomplicated; F11.10 Opioid abuse, uncomplicated; I10 Essential (primary) hypertension; E66.9 Obesity, unspecified; G47.30 Sleep apnea, unspecified; Z87.891 Personal history of nicotine dependence; Z79.899 Other long term (current) drug therapy

== ENCOUNTER → 2017-03-01 | Outpatient (CLI) | payer OTHER ==
[~2017-03-01] MED LIST changes: +NYSCR30 EXT; -VNTHFA/IN INH
== END | disposition home or self-care (01) ==
LOC: C.LAB1850 15:43
PROVIDERS: ATTEND Psychiatry & Neurology Psychiatry
DX: Z51.81 Encounter for therapeutic drug level monitoring (principal); Z79.899 Other long term (current) drug therapy

== ENCOUNTER 2017-04-03 09:41 | Emergency (ER) | payer OTHER ==
[~2017-04-03] VITALS: Ht 180.3 cm; Wt 136.6 kg
[~2017-04-03 09:41] MED LIST changes: -NYSCR30 EXT
[2017-04-03 09:47] VITALS: TEMP 36.5; Ht 180.3 cm; Wt 136.6 kg
[2017-04-03] MEDS ORDERED: SODIUM CHLORIDE 0.9% 1000ML 1,000 ML IV STA (10:08)
[2017-04-03 10:21] LABS: BASO % 0.5 %; BASO ABS # 0.03 K/uL (0-0.2); COMPLETE YES; EOS % 3.2 %; HEMATOCRIT 45.7 % (42-52); IG% 0.3 %; LYMPH % 32.5 %; LYMPH ABS # 2.11 K/uL (1.2-3.4); MEAN CELL VOLUME 85.3 fL (80-100); MEAN CORPUSCULAR HEMOGLOBIN 28.4 pg (25-34); MEAN CORPUSCULAR HGB CONC 33.3 g/dl (32-36); MEAN PLATELET VOLUME 10.6 fL (7.4-10.4); MONO % 6.2 %; NEUT % 57.3 %; PLATELET COUNT 233 K/uL (130-400); RED BLOOD COUNT 5.36 M/uL (4.7-6.1)
[2017-04-03 10:28] LABS: ALT/SGPT 44 U/L (12-78); AST/SGOT 20 U/L (15-37); BLOOD UREA NITROGEN 15 mg/dl (7-18); BUN/CREATININE RATIO 12.6 (10-20); CALCIUM 9.5 mg/dl (8.5-10.1); CARBON DIOXIDE 30 mmol/L (21-32); CHLORIDE 103 mmol/L (98-107); GLUCOSE 110 mg/dl (70-99); MAGNESIUM 2.3 mg/dl (1.8-2.4); POTASSIUM 3.9 mmol/L (3.5-5.1); SODIUM 138 mmol/L (136-145)
--- NOTE | 2017-04-03 10:30 | EMERGENCY ROOM VISIT NOTE ---
History Report prepared by Jose: Palak Cat Under the Supervision of: Dr. Catherine Palumbo M.D. First contact with patient: 09:51 Chief Complaint: RECTAL BLEEDING Stated Complaint: RUPTURED KIDNEY-VERY PAINFUL Nursing Triage Summary: pt reports dark stools History of Present Illness The patient is a 31 year old male who presents to the Emergency Room with complaints of constant left lower back pain that started 5 hours ago, around 0500. The pain is worse with standing and does not radiate down his leg. The patient woke up with the pain. The patient states that he was unable to go back to sleep secondary to the pain. He states that it feels like his kidney "ruptured." The patient denies any recent trauma but he states that the pain started after he got out of the shower so he thinks that he may have pulled a muscle. He has not urinated yet today so he is unsure of if he is experiencing any difficulties. He states that he urinated without difficulty last night. The patient is also experiencing rectal bleeding with bowel movements which started a few weeks ago. He denies any abdominal pain. The patient is also experiencing pain with coughing. The patient has never experienced these symptoms in the past. He states that he has a past medical history of depression but denies any other significant past medical history. He denies any alcohol or substance use. Source of History: patient Onset: 5 hours ago, around 0500 Position: back (lower, left) Quality: other (left lower back pain) Timing: constant Modifying Factors (Worsening): other (standing) Associated Symptoms: No abdominal pain Note: rectal bleeding, pain with coughing Review of Systems See HPI for pertinent positives & negatives. A total of 10 systems reviewed and were otherwise negative. Past Medical & Surgical Medical Problems: (1) Antisocial personality disorder (2) Anxiety disorder (3) Cannabis abuse (4) Depression (5) Heroin abuse (6) Hypertension Nos (7) Obesity (8) Schizophrenia (9) Sleep apnea Family History No pertinent family history Social History Smoking Status: Never Smoker Alcohol Use: occasionally Drug Use: marijuana Marital Status: single Housing Status: lives with family Occupation Status: employed Current/Historical Medications Scheduled [place] Carbonate Ext Rel (Lithobid Ext Rel), 450 MG PO DAILY Nystatin (Nystatin Cream), 0 EXT TID Propranolol (Inderal), 10 MG PO DAILY Allergies Coded Allergies: Poison [place] Extract/Poison [place] Extra (Unverified Allergy, Severe, RASH, ) Physical Exam Vital Signs Date Time Temp Pulse Resp B/P (MAP) Pulse Ox O2 Delivery O2 Flow Rate FiO2 04/03/17 12:52 78 18 121/94 96 Room Air 04/03/17 11:49 76 12 136/89 91 Room Air 04/03/17 10:42 72 04/03/17 10:40 67 12 139/79 92 Room Air 04/03/17 09:47 36.5 78 18 137/96 92 Room Air Physical Exam Vital signs reviewed. General: Well-appearing male, in no significant distress. HEENT: No scleral icterus, PERRLA, neck supple. Atraumatic. Cardiovascular: Regular rate and rhythm, no extra sounds. Pulmonary: Clear to auscultation bilaterally, normal work of breathing. Abdomen: Soft, obese, nontender, nondistended, positive bowel sounds. Musculoskeletal: Atraumatic, mildly tender to palpation of left flank, no CVA tenderness, no peripheral edema. Rectal: Excoriated mucosa, no hemorrhoids appreciated, GUAIAC negative brown stool. 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 Lung bases: Dependent changes greater on the right, likely atelectasis. Normal heart size. No pericardial or pleural effusion. Liver: Normal morphology. Hepatic steatosis. Biliary: No intrahepatic or extrahepatic biliary ductal dilatation. Normal gallbladder. Pancreas: Normal. Spleen: Normal. Adrenal glands: Normal. Kidneys and ureters: No nephrolithiasis. No hydronephrosis. Questionable punctate hyperdensity within the distal right ureter (series 3 image 417) without periureteral fat stranding or right hydroureter. This is not convincing for a calculus. Gastrointestinal tract: Normal appendix. No bowel obstruction. Peritoneal cavity: No free fluid or intraperitoneal gas. Bladder: Incompletely evaluated secondary to underdistention. Pelvic organs: Prostate and seminal vesicles normal. Vasculature: Aorta and IVC patent and normal in caliber. Lymph nodes: No enlarged lymph nodes in the abdomen or pelvis. Abdominal wall: Fat-containing umbilical hernia. Minimal focal infiltration over the left gluteal region (series 2 image 73). Musculoskeletal: Normal. IMPRESSION: 1. No convincing evidence of nephrolithiasis. No obstruction. No acute intra-abdominal pathology. 2. Minimal focal infiltration overlying the left gluteal region, possibly contusion. Electronically signed by: Tu Rawls M.D. 04/03/2017 11:09 AM Dictated Date/Time: 04/03/2017 11:03 AM Laboratory Results 04/03/17 10:00 Red Blood Count 5.36, Mean Corpuscular Volume 85.3, Mean Corpuscular Hemoglobin 28.4, Mean Corpuscular Hemoglobin Concent 33.3, Mean Platelet Volume 10.6, Neutrophils (%) (Auto) 57.3, Lymphocytes (%) (Auto) 32.5, Monocytes (%) (Auto) 6.2, Eosinophils (%) (Auto) 3.2, Basophils (%) (Auto) 0.5, Neutrophils # (Auto) 3.73, Lymphocytes # (Auto) 2.11, Monocytes # (Auto) 0.40, Eosinophils # (Auto) 0.21, Basophils # (Auto) 0.03 04/03/17 10:00 Test 04/03/17 10:00 04/03/17 11:48 White Blood Count 6.50 K/uL (4.8-10.8) Red Blood Count 5.36 M/uL (4.7-6.1) Hemoglobin 15.2 g/dL (14.0-18.0) Hematocrit 45.7 % (42-52) Mean Corpuscular Volume 85.3 fL (80-100) Mean Corpuscular Hemoglobin 28.4 pg (25-34) Mean Corpuscular Hemoglobin Concent 33.3 g/dl (32-36) Platelet Count 233 K/uL (130-400) Mean Platelet Volume 10.6 fL (7.4-10.4) Neutrophils (%) (Auto) 57.3 % Lymphocytes (%) (Auto) 32.5 % Monocytes (%) (Auto) 6.2 % Eosinophils (%) (Auto) 3.2 % Basophils (%) (Auto) 0.5 % Neutrophils # (Auto) 3.73 K/uL (1.4-6.5) Lymphocytes # (Auto) 2.11 K/uL (1.2-3.4) Monocytes # (Auto) 0.40 K/uL (0.11-0.59) Eosinophils # (Auto) 0.21 K/uL (0-0.5) Basophils # (Auto) 0.03 K/uL (0-0.2) RDW Standard Deviation 39.5 fL (36.4-46.3) RDW Coefficient of Variation 12.7 % (11.5-14.5) Immature Granulocyte % (Auto) 0.3 % Immature Granulocyte # (Auto) 0.02 K/uL (0.00-0.02) Anion Gap 5.0 mmol/L (3-11) Est Creatinine Clear Calc Drug Dose 123.6 ml/min Estimated GFR () 91.5 Estimated GFR (Non- 79.0 BUN/Creatinine Ratio 12.6 (10-20) Calcium Level 9.5 mg/dl (8.5-10.1) Magnesium Level 2.3 mg/dl (1.8-2.4) Total Bilirubin 0.4 mg/dl (0.2-1) Direct Bilirubin < 0.1 mg/dl (0-0.2) Aspartate Amino Transf (AST/SGOT) 20 U/L (15-37) Alanine Aminotransferase (ALT/SGPT) 44 U/L (12-78) Alkaline Phosphatase 62 U/L (45-117) Total Protein 7.4 gm/dl (6.4-8.2) Albumin 3.8 gm/dl (3.4-5.0) Lipase 124 U/L (73-393) [place] Level 0.4 mMOL/L (0.6-1.2) Urine Color YELLOW Urine Appearance CLEAR (CLEAR) Urine pH 5.5 (4.5-7.5) Urine Specific [place] 1.013 (1.000-1.030) Urine Protein NEG (NEG) Urine Glucose (UA) NEG (NEG) Urine Ketones NEG (NEG) Urine Occult Blood NEG (NEG) Urine Nitrite NEG (NEG) Urine Bilirubin NEG (NEG) Urine Urobilinogen NEG (NEG) Urine Leukocyte Esterase TRACE (NEG) Urine WBC (Auto) 1-5 /hpf (0-5) Urine RBC (Auto) 0-4 /hpf (0-4) Urine Hyaline Casts (Auto) 0 /lpf (0-5) Urine Epithelial Cells (Auto) 5-10 /lpf (0-5) Urine Bacteria (Auto) NEG (NEG) Urine Opiates Screen NEG (NEG) Urine Methadone, Qualitative NEG (NEG) Urine Barbiturates NEG (NEG) Urine Phencyclidine (PCP) Level NEG (NEG) Ur Amphetamine/Methamphetamine NEG (NEG) MDMA (Ecstasy) Screen NEG (NEG) Urine Benzodiazepines Screen NEG (NEG) Urine Cocaine Metabolite NEG (NEG) Urine Marijuana (THC) NEG (NEG) Laboratory results per my review. Medications Administered Medications (Trade) Dose Ordered Sig/Deonte Route Start Time Stop Time Status Last Admin Dose Admin Sodium Chloride 1,000 ml @ 200 mls/hr Q5H STAT IV 04/03/17 10:08 04/03/17 13:15 DC 04/03/17 10:16 200 MLS/HR ED Course 1005: Past medical records reviewed. The patient was evaluated in room B9. A complete history and physical examination was performed. 1008: Ordered Sodium Chloride 1000 ml @ 200 mls/hr IV 1255: Upon reevaluation, the patient appeared to have improvement of his symptoms. I discussed findings with him. He verbalized agreement of the treatment plan. He was discharged home. Medical Decision Differential diagnoses includes renal colic, appendicitis, diverticulitis, mesenteric ischemia, aortic pathology, infections, inflammatory bowel disease, PUD, biliary pathology, UTI. Medication Reconciliation: I attest that I have personally reviewed the patient' s current medication list. Blood Pressure Screening: Patient was found to have an elevated blood pressure and was referred to their primary doctor for recheck and further treatment. This patient was evaluated and appeared to be in no significant distress. IV access was obtained and laboratory work was drawn. The patient was placed on the conveyor monitor and found to be in a normal sinus rhythm. He was hydrated with normal saline solution. CT scan of the abdomen and pelvis was performed and reveals no evidence of acute infectious or inflammatory findings. Rectal exam was performed and reveals some mucosal excoriation. Patient was advised to use nystatin 3 times a day, wash and dry his rectum regularly. Laboratory work is unrevealing. UA is negative. Urine tox screen is negative. The patient was discharged and will follow-up with his PCP for reevaluation this week. He will return to the ER for worsening of symptoms or any medical concerns. Impression Primary Impression: Muscle strain Additional Impression: Rectal candidiasis Scribe Attestation The scribe's documentation has been prepared under my direction and personally reviewed by me in its entirety. I confirm that the note above accurately reflects all work, treatment, procedures, and medical decision making performed by me. Departure Information Dispostion Home / Self-Care Prescriptions Nystatin (Nystatin Cream) 90 Appln/30 Gm Cr 0 EXT TID for 7 Days, #15 GM APPLY TO AFFECTED AREA BID Prov: Catherine Palumbo M.D. 04/03/17 Referrals Garcia Ayon MD (PCP) Forms HOME CARE DOCUMENTATION FORM, IMPORTANT VISIT INFORMATION, WORK / SCHOOL INSTRUCTIONS Patient Instructions My [facility] Additional Instructions Diagnosis: Muscular strain, rectal candidiasis Apply nystatin cream to rectal tissue EXTERNALLY three times daily. Wash with warm soap and water, dry well before use. Ibuprofen 600 mg every 6 hours as needed for pain with food. Warm compresses and gentle stretching. Follow up with your doctor this week for rechck of your blood pressure and current condition. Return to the emergency department for worsening of symptoms or any medical concerns. Problem Qualifiers
[2017-04-03 10:31] LABS: ALKALINE PHOSPHATASE 62 U/L (45-117)
--- NOTE | 2017-04-03 11:10 | DIAGNOSTIC IMAGING REPORT ---
ABD/PELVIS NO IV OR ORAL CONT CLINICAL HISTORY: 31 years-old Male presenting with Flank pain, stone. TECHNIQUE: Multidetector CT of the abdomen and pelvis was performed without the use of intravenous contrast. IV contrast: None. COMPARISON: 03/18/2015. CT DOSE: The estimated cumulative dose is 2094.68 mGy.cm. 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 Lung bases: Dependent changes greater on the right, likely atelectasis. Normal heart size. No pericardial or pleural effusion. Liver: Normal morphology. Hepatic steatosis. Biliary: No intrahepatic or extrahepatic biliary ductal dilatation. Normal gallbladder. Pancreas: Normal. Spleen: Normal. Adrenal glands: Normal. Kidneys and ureters: No nephrolithiasis. No hydronephrosis. Questionable punctate hyperdensity within the distal right ureter (series 3 image 417) without periureteral fat stranding or right hydroureter. This is not convincing for a calculus. Gastrointestinal tract: Normal appendix. No bowel obstruction. Peritoneal cavity: No free fluid or intraperitoneal gas. Bladder: Incompletely evaluated secondary to underdistention. Pelvic organs: Prostate and seminal vesicles normal. Vasculature: Aorta and IVC patent and normal in caliber. Lymph nodes: No enlarged lymph nodes in the abdomen or pelvis. Abdominal wall: Fat-containing umbilical hernia. Minimal focal infiltration over the left gluteal region (series 2 image 73). Musculoskeletal: Normal. IMPRESSION: 1. No convincing evidence of nephrolithiasis. No obstruction. No acute intra-abdominal pathology. 2. Minimal focal infiltration overlying the left gluteal region, possibly contusion. Electronically signed by: Tu Rawls M.D. 04/03/2017 11:09 AM Dictated Date/Time: 04/03/2017 11:03 AM
[2017-04-03 12:01] LABS: URINE APPEARANCE CLEAR (CLEAR); URINE BILIRUBIN NEG (NEG); URINE COLOR YELLOW; URINE NITRITE NEG (NEG); URINE PH 5.5 (4.5-7.5); URINE SPECIFIC GRAVITY 1.013 (1.000-1.030); UROBILINOGEN NEG (NEG); ZZUR CULT IF INDIC CLEAN CATCH NO
[2017-04-03 12:04] LABS: MANUAL MICROSCOPIC REQUIRED? NO; REVIEW REQ? NO
[2017-04-03] MEDS ORDERED: NYSCR30 EXT (12:27)
[2017-04-03 12:31] LABS: BENZODIAZEPINE, URINE NEG (NEG); COCAINE,URINE NEG (NEG); PHENCYCLIDINE, URINE NEG (NEG)
[2017-04-03 12:52] VITALS: BP 121/94; PULSE 78; O2SAT 96
== END 2017-04-03 12:56 | disposition home or self-care (01) ==
LOC: C.EDB 09:42
DX: K62.89 Other specified diseases of anus and rectum (principal); B37.89 Other sites of candidiasis; F60.2 Antisocial personality disorder; F41.9 Anxiety disorder, unspecified; F12.90 Cannabis use, unspecified, uncomplicated; F32.9 Major depressive disorder, single episode, unspecified; F11.90 Opioid use, unspecified, uncomplicated; I10 Essential (primary) hypertension; E66.9 Obesity, unspecified; F20.9 Schizophrenia, unspecified; G47.30 Sleep apnea, unspecified

== ENCOUNTER → 2017-04-12 | Outpatient (CLI) | payer OTHER ==
[~2017-04-12] MED LIST changes: -AZITTAB PO
[2017-04-12 12:35] LABS: BLOOD UREA NITROGEN 14 mg/dl (7-18); BUN/CREATININE RATIO 14.6 (10-20); CALCIUM 9.5 mg/dl (8.5-10.1); CARBON DIOXIDE 27 mmol/L (21-32); CHLORIDE 106 mmol/L (98-107); CREATININE 0.99 mg/dl (0.60-1.40); GLUCOSE 97 mg/dl (70-99); POTASSIUM 4.1 mmol/L (3.5-5.1); SODIUM 138 mmol/L (136-145)
[2017-04-12 12:48] LABS: CHOLESTEROL 203 mg/dl (0-200); CHOLESTEROL/HDL RATIO 4.4; HDL CHOLESTEROL 46 mg/dl; LDL CHOLESTEROL CALCULATED 118 mg/dl; TRIGLYCERIDES 193 mg/dl (0-150); VERY LOW DENSITY LIPOPROT CALC 39 mg/dl
== END | disposition home or self-care (01) ==
LOC: C.LAB1850 08:56
PROVIDERS: ATTEND Psychiatry & Neurology Psychiatry
DX: Z79.899 Other long term (current) drug therapy (principal)

== ENCOUNTER → 2017-08-14 | Outpatient (CLI) | payer OTHER | END | disposition home or self-care (01) | LOC: C.LAB 09:18 | PROVIDERS: ATTEND Family Medicine | DX: R53.81 Other malaise (principal) ==

== ENCOUNTER 2018-01-03 00:45 | Emergency (ER) | payer OTHER ==
[~2018-01-03] VITALS: Ht 180.3 cm; Wt 157.4 kg
[~2018-01-03 00:45] MED LIST changes: +[UNRECOGNIZED DRUG - CODE] INJ
[2018-01-03 00:48] VITALS: TEMP 36.7; Ht 180.3 cm; Wt 157.4 kg
[2018-01-03] MEDS ORDERED: ALBUT/IPRATROP 3MG/0.5MG NEB 3 ML VIAL INH STA (01:08)
--- NOTE | 2018-01-03 01:09 | EMERGENCY ROOM VISIT NOTE ---
History Report prepared by Jose: Bea Art Under the Supervision of: Dr. Karlie Landry D.O. First contact with patient: 00:52 Chief Complaint: RESPIRATORY PROBLEMS Stated Complaint: RESPIRATORY PROBLEMS History of Present Illness The patient is a 32 year old male who presents to the Emergency Room with complaints of worsening trouble breathing that started a couple of hours ago. The patient rates his pain an 8/10 in severity. The patient notes he's had a history of breathing problems for about 2 months but it was worse tonight. He states he is having a hard time sleeping because he cannot breathe. He notes he has been coughing as well. He states, "I think I have a hernia from the pain of coughing and trouble breathing". The patient denies any fever, chills, chest pain, nausea, vomiting, or abdominal pain. He notes he had asthma as a kid. The patient reports he quit smoking last year. He has a history of anxiety but has been better since he has been on medications. The patient notes he has gained weight recently. He states he is trying to get back into school. Source of History: patient Onset: a couple of hours ago Position: other (respiratory) Symptom Intensity: 8/10 Timing: worsening Associated Symptoms: + cough, No fevers, No chills, No chest pain, No nausea , No vomiting, No abdominal pain Review of Systems See HPI for pertinent positives & negatives. A total of 10 systems reviewed and were otherwise negative. Past Medical & Surgical Medical Problems: (1) Antisocial personality disorder (2) Anxiety disorder (3) Cannabis abuse (4) Depression (5) Heroin abuse (6) Hypertension Nos (7) Obesity (8) Schizophrenia (9) Sleep apnea Family History No pertinent family history Social History Smoking Status: Never Smoker Alcohol Use: occasionally Drug Use: marijuana Marital Status: single Housing Status: lives with family Occupation Status: employed Current/Historical Medications Scheduled Haloperidol Decanoate (Haloperidol Decanoate), 50 MG INJ MONTHLY [place] Carbonate (Lithobid Ext Rel), 900 MG PO HS [place] Carbonate Ext Rel (Lithobid Ext Rel), 300 MG PO QAM Propranolol (Inderal), 10 MG PO BID Allergies Coded Allergies: Poison [place] Extract/Poison [place] Extra (Unverified Allergy, Severe, RASH, ) Physical Exam Vital Signs Date Time Temp Pulse Resp B/P (MAP) Pulse Ox O2 Delivery O2 Flow Rate FiO2 01/03/18 02:02 87 18 152/96 96 Room Air 01/03/18 01:07 96 Room Air 01/03/18 00:48 36.7 91 18 126/89 94 Room Air Physical Exam General: Obese male in no respiratory distress. HEENT: Head - normocephalic and atraumatic Pupils are equal, round, and reactive to light. Extraocular eye muscles are intact, and sclera are anicteric. Nose - moist nasal mucosa without discharge. Mouth - moist buccal mucosa. Oropharynx is nonerythematous and there is no tonsillar exudate or edema noted. Neck: Supple; no JVD, nuchal rigidity, cervical lymphadenopathy, or auscultated bruits. Heart: Regular rate and rhythm. There is a normal S1 and S2 with no murmurs, clicks, or gallops appreciated. Lungs: Minimal expiratory wheezing in all lung martin. Abdomen: Soft, completely nontender, nondistended, with good bowel sounds. There are no palpable pulsatile masses or hepatosplenomegaly. There are no palpable abdominal wall hernias. There is no guarding, rigidity, or rebound noted. Extremities: No evidence of cyanosis, clubbing, or edema. There are easily palpable peripheral pulses. Skin: warm and dry with good turgor and no rashes. Medical Decision & Procedures ER Provider Diagnostic Interpretation: Radiology results as stated below per my review and the radiologist's interpretation: 2 VIEW CHEST XRAY: Cardiomegaly, no pulmonary infiltrate or plural effusion. Medications Administered Medications (Trade) Dose Ordered Sig/Deonte Route Start Time Stop Time Status Last Admin Dose Admin Albuterol/ Ipratropium (Duoneb) 3 ml NOW STAT INH 01/03/18 01:08 01/03/18 01:10 DC 01/03/18 01:08 3 ML Albuterol (Ventolin Hfa Inhaler) 2 puffs NOW ONCE INH 01/03/18 01:45 01/03/18 01:46 DC 01/03/18 01:59 2 PUFFS Procedure 0108: Duoneb 3 ml INH. 0145: Albuterol 2 puffs INH. ED Course 0052: Past medical records reviewed. The patient was evaluated in room A12B. A complete history and physical exam was performed. 0108: Duoneb 3 ml INH. The patient went for a 2 view chest x-ray as described above. 0135: I rechecked the patient and he feels better after nebulizer treatment. I reviewed his x-ray results with him. The patient is ready for discharge. 0145: The patient was discharged with a albuterol inhaler. Medical Decision The patient is a 32 year old male who presents to the ED with respiratory problems. Differential diagnosis includes asthma, bronchitis, PNA, anxiety. This is a 32-year-old male patient presents to the emergency department with a 2 month history of respiratory problems. The patient states that he feels as if he cannot get enough air in. He states that it seems to get worse at nighttime. The patient does have a long history of mental health issues. However, the patient states that he feels that those issues are under good control on his medications. The patient seems quite anxious on my exam. His physical exam appears normal. Chest x-ray reveals no evidence for pulmonary consolidation. The patient does describe asthma as a child and previously using inhalers. Patient was given an albuterol inhaler to use since he had such significant relief of his symptoms with the nebulizer. Medication Reconcilliation Current Medication List: was personally reviewed by me Blood Pressure Screening Patient's blood pressure: Normal blood pressure Impression Primary Impression: Bronchitis Scribe Attestation The scribe's documentation has been prepared under my direction and personally reviewed by me in its entirety. I confirm that the note above accurately reflects all work, treatment, procedures, and medical decision making performed by me. Departure Information Dispostion Home / Self-Care Referrals Garcia Ayon MD (PCP) Patient Instructions My [facility] Additional Instructions Rest. Use inhaler - 2 puffs every 4-6 hours for difficulty breathing. Return to the ER for worsening breathing problems. Follow up with PCP if inhaler is not heelping
[2018-01-03] MEDS ORDERED: ALBUTEROL HFA 8 GM INHALER INH ONE (01:45)
[2018-01-03] MEDS ORDERED: LITH1TAB10 PO (01:54)
[2018-01-03] MEDS ORDERED: LITH300T PO (01:54)
[2018-01-03 02:02] VITALS: BP 152/96; PULSE 87; O2SAT 96
--- NOTE | 2018-01-03 06:51 | DIAGNOSTIC IMAGING REPORT ---
CHEST 2 VIEWS ROUTINE HISTORY: 32 years-old Male eval for pneumonia acute cough for 2 months. COMPARISON: Chest radiograph 01/31/2017 TECHNIQUE: PA and lateral views of the chest FINDINGS: Cardiac silhouette appears mildly enlarged, likely accentuated by technique. No pneumothorax, pleural effusion, focal airspace consolidation or overt pulmonary edema. Bones of the chest appear grossly intact. IMPRESSION: No acute process. The above report was generated using voice recognition software. It may contain grammatical, syntax or spelling errors. Electronically signed by: Dae Garcia M.D. 01/03/2018 6:50 AM Dictated Date/Time: 01/03/2018 6:49 AM
== END 2018-01-03 02:03 | disposition home or self-care (01) ==
LOC: C.EDB 00:47 → C.EDA 02:03
DX: J40 Bronchitis, not specified as acute or chronic (principal); Z87.09 Personal history of other diseases of the respiratory system; Z86.59 Personal history of other mental and behavioral disorders; F20.9 Schizophrenia, unspecified; E66.9 Obesity, unspecified; I10 Essential (primary) hypertension; G47.30 Sleep apnea, unspecified; Z91.048 Other nonmedicinal substance allergy status

== ENCOUNTER 2018-01-30 22:56 | Emergency (ER) | payer OTHER ==
[~2018-01-30] VITALS: Ht 180.3 cm; Wt 154.2 kg
[~2018-01-30 22:56] MED LIST changes: -LITH1TAB PO; +LITH1TAB10 PO; +LITH300T PO
[2018-01-30 22:59] VITALS: TEMP 36.7; Ht 180.3 cm; Wt 154.2 kg
--- NOTE | 2018-01-30 23:17 | EMERGENCY ROOM VISIT NOTE ---
History Report prepared by Jose: Tony Melvin Under the Supervision of: Dr. Marcell Husain M.D. First contact with patient: 23:02 Chief Complaint: MENTAL HEALTH EVALUATION Stated Complaint: NERVOUS BREAKDOWN History of Present Illness The patient is a 32 year old male who presents to the Emergency Room with complaints of worsening anxiety beginning a few weeks ago. The patient states he is very "mentally unstable." He reports he is having a nervous breakdown from recent situations that were very stressful. The patient notes he has a counselor and has not talked to them because his symptoms "snuck up on him." He states he needs to have his medication adjusted and a psychiatric treatment plan developed. The patient reports he would like to be admitted to [facility] to be in the therapeutic environment. He notes he does not have a job, and he has not been sleeping well. The patient states he is looking for a job. He reports he was diagnosed with type II diabetes two weeks ago and does not keep track of his sugars. The patient notes he has been verbally violent towards people and angry. He denies suicidal ideation, homicidal ideation, hallucinations, alcohol use, drug use, missing his medications, and being physically violent towards people. The patient also denies chest pain, shortness of breath, abdominal pain, and urinary symptoms. Source of History: patient Onset: few weeks ago Quality: other (anxiety) Timing: worsening Associated Symptoms: No chest pain, No SOB, No abdominal pain, No urinary symptoms Note: Associated symptoms: verbally violent towards people, angry Denies: suicidal ideation, homicidal ideation, hallucinations, alcohol use, drug use, missing his medications, and being physically violent towards people Review of Systems See HPI for pertinent positives & negatives. A total of 10 systems reviewed and were otherwise negative. Past Medical & Surgical Medical Problems: (1) Antisocial personality disorder (2) Anxiety disorder (3) Cannabis abuse (4) Depression (5) Heroin abuse (6) Hypertension Nos (7) Obesity (8) Schizophrenia (9) Sleep apnea Family History No pertinent family history Social History Smoking Status: Never Smoker Alcohol Use: occasionally Drug Use: marijuana Marital Status: single Housing Status: lives with family Occupation Status: employed Current/Historical Medications Scheduled Haloperidol Decanoate (Haloperidol Decanoate), 50 MG INJ MONTHLY [place] Carbonate (Lithobid Ext Rel), 900 MG PO HS [place] Carbonate Ext Rel (Lithobid Ext Rel), 300 MG PO QAM Propranolol (Inderal), 10 MG PO BID Allergies Coded Allergies: Poison [place] Extract/Poison [place] Extra (Unverified Allergy, Severe, RASH, ) Physical Exam Vital Signs Date Time Temp Pulse Resp B/P (MAP) Pulse Ox O2 Delivery O2 Flow Rate FiO2 01/31/18 01:00 89 18 134/90 95 01/30/18 22:59 36.7 83 18 128/87 94 Room Air Physical Exam GENERAL: Patient is mildly anxious appearing and in no acute distress. EYES: No scleral icterus, unremarkable pupils. ENT: Mucous membranes moist, no nasal congestion. NECK: No masses appreciated, no meningismus, trachea is midline. RESPIRATORY: No dyspnea. Clear to auscultation and equal bilaterally. No wheeze , no rhonchi. CARDIOVASCULAR: Regular rate and rhythm. No murmurs, rubs, gallops appreciated. GASTROINTESTINAL: Abdomen soft, nontender, no peritonitis. Bowel sounds positive. No masses appreciated. BACK: No midline tenderness, no CVA tenderness EXTREMITIES: Normal motion all extremities, no cyanosis, no edema. NEUROLOGIC: Alert and oriented, no acute motor or sensory deficits, no focal weakness, cranial nerves grossly intact. PSYCHIATRIC: Flat affect. Mildly depressed. States anxious. Denies suicidal ideation, homicidal ideation, hallucinations. SKIN: No rash, no jaundice, no diaphoresis. Medical Decision & Procedures Laboratory Results 01/30/18 23:45 Red Blood Count 4.98, Mean Corpuscular Volume 85.1, Mean Corpuscular Hemoglobin 28.5, Mean Corpuscular Hemoglobin Concent 33.5, Mean Platelet Volume 11.1, Neutrophils (%) (Auto) 53.2, Lymphocytes (%) (Auto) 35.4, Monocytes (%) (Auto) 8.2, Eosinophils (%) (Auto) 2.8, Basophils (%) (Auto) 0.3, Neutrophils # (Auto) 3.64, Lymphocytes # (Auto) 2.42, Monocytes # (Auto) 0.56, Eosinophils # (Auto) 0.19, Basophils # (Auto) 0.02 01/30/18 23:45 Test 01/30/18 23:15 01/30/18 23:45 Urine Color YELLOW Urine Appearance CLEAR (CLEAR) Urine pH 5.0 (4.5-7.5) Urine Specific [place] 1.026 (1.000-1.030) Urine Protein NEG (NEG) Urine Glucose (UA) NEG (NEG) Urine Ketones NEG (NEG) Urine Occult Blood NEG (NEG) Urine Nitrite NEG (NEG) Urine Bilirubin NEG (NEG) Urine Urobilinogen NEG (NEG) Urine Leukocyte Esterase SMALL (NEG) Urine WBC (Auto) 5-10 /hpf (0-5) Urine RBC (Auto) 0-4 /hpf (0-4) Urine Hyaline Casts (Auto) 0 /lpf (0-5) Urine Epithelial Cells (Auto) 20-30 /lpf (0-5) Urine Bacteria (Auto) NEG (NEG) Urine Opiates Screen NEG (NEG) Urine Methadone, Qualitative NEG (NEG) Urine Barbiturates NEG (NEG) Urine Phencyclidine (PCP) Level NEG (NEG) Ur Amphetamine/Methamphetamine NEG (NEG) MDMA (Ecstasy) Screen NEG (NEG) Urine Benzodiazepines Screen NEG (NEG) Urine Cocaine Metabolite NEG (NEG) Urine Marijuana (THC) NEG (NEG) White Blood Count 6.84 K/uL (4.8-10.8) Red Blood Count 4.98 M/uL (4.7-6.1) Hemoglobin 14.2 g/dL (14.0-18.0) Hematocrit 42.4 % (42-52) Mean Corpuscular Volume 85.1 fL (80-100) Mean Corpuscular Hemoglobin 28.5 pg (25-34) Mean Corpuscular Hemoglobin Concent 33.5 g/dl (32-36) Platelet Count 190 K/uL (130-400) Mean Platelet Volume 11.1 fL (7.4-10.4) Neutrophils (%) (Auto) 53.2 % Lymphocytes (%) (Auto) 35.4 % Monocytes (%) (Auto) 8.2 % Eosinophils (%) (Auto) 2.8 % Basophils (%) (Auto) 0.3 % Neutrophils # (Auto) 3.64 K/uL (1.4-6.5) Lymphocytes # (Auto) 2.42 K/uL (1.2-3.4) Monocytes # (Auto) 0.56 K/uL (0.11-0.59) Eosinophils # (Auto) 0.19 K/uL (0-0.5) Basophils # (Auto) 0.02 K/uL (0-0.2) RDW Standard Deviation 40.8 fL (36.4-46.3) RDW Coefficient of Variation 13.2 % (11.5-14.5) Immature Granulocyte % (Auto) 0.1 % Immature Granulocyte # (Auto) 0.01 K/uL (0.00-0.02) Anion Gap 5.0 mmol/L (3-11) Est Creatinine Clear Calc Drug Dose 139.2 ml/min Estimated GFR () 97.7 Estimated GFR (Non- 84.3 BUN/Creatinine Ratio 16.7 (10-20) Calcium Level 8.9 mg/dl (8.5-10.1) Total Bilirubin 0.3 mg/dl (0.2-1) Aspartate Amino Transf (AST/SGOT) 21 U/L (15-37) Alanine Aminotransferase (ALT/SGPT) 36 U/L (12-78) Alkaline Phosphatase 62 U/L (45-117) Total Protein 7.3 gm/dl (6.4-8.2) Albumin 3.6 gm/dl (3.4-5.0) Globulin 3.7 gm/dl (2.5-4.0) Albumin/Globulin Ratio 1.0 (0.9-2) Thyroid Stimulating Hormone (TSH) 3.220 uIu/ml (0.300-4.500) Salicylates Level < 1.7 mg/dl (2.8-20) Acetaminophen Level < 2 ug/ml (10-30) [place] Level 0.3 mMOL/L (0.6-1.2) Ethyl Alcohol mg/dL < 3.0 mg/dl (0-3) Laboratory results as reviewed by me. ED Course 2307: The patient was evaluated in room A06. A complete history and physical exam was performed. 0048: Reevaluated the patient. He is feeling better and comfortable to go home. He still denies homicidal ideation, suicidal ideations, and hallucinations. He will follow-up with his doctor tomorrow morning. Discussed results and discharge instructions: he verbalized understanding and agreement. The patient is ready for discharge. Medical Decision Differential: Mood Disorder, Overdose, Infectious, Electrolyte Abnormality, Cardiac, Hepatic, Endocrine, Toxicologic, Neurologic, amongst other pathologies entertained. 32 yr old male arrives requesting admission to [address] [place] [address] because he is feeling anxious. After long chat with him by Dom and myself he understands that we can not just admit him there. He is clear about not being suicidal nor homicidal, he is is not in any way acutely psychotic. No evidence that he is unable to give basic care to himself. He is calm, cooperative and in no distress. Labs unremarkable. He is here with mother. They agree with outpatient follow up and he will call his provider in the morning. Discussed symptoms requiring RTED and 911. Medication Reconcilliation Current Medication List: was personally reviewed by me Blood Pressure Screening Patient's blood pressure: Normal blood pressure Blood pressure disposition: Did not require urgent referral Impression Primary Impression: Mood disorder Additional Impressions: Stress No suicidal thoughts Scribe Attestation The scribe's documentation has been prepared under my direction and personally reviewed by me in its entirety. I confirm that the note above accurately reflects all work, treatment, procedures, and medical decision making performed by me. Departure Information Dispostion Home / Self-Care Referrals Garcia Ayon MD (PCP) Forms HOME CARE DOCUMENTATION FORM, IMPORTANT VISIT INFORMATION Patient Instructions My [facility] Additional Instructions We are always here to help. Return or call 911 if you feel you are at risk of harming yourself or others or if you have other concerns develop. Follow up with your primary provider and psychologist tomorrow. Problem Qualifiers
[2018-01-30 23:55] LABS: BASO % 0.3 %; BASO ABS # 0.02 K/uL (0-0.2); EOS % 2.8 %; EOS ABS # 0.19 K/uL (0-0.5); HEMATOCRIT 42.4 % (42-52); HEMOGLOBIN 14.2 g/dL (14.0-18.0); IG# 0.01 K/uL (0.00-0.02); LYMPH % 35.4 %; LYMPH ABS # 2.42 K/uL (1.2-3.4); MEAN CELL VOLUME 85.1 fL (80-100); MEAN CORPUSCULAR HEMOGLOBIN 28.5 pg (25-34); MEAN CORPUSCULAR HGB CONC 33.5 g/dl (32-36); MEAN PLATELET VOLUME 11.1 fL (7.4-10.4); MONO % 8.2 %; MONO ABS # 0.56 K/uL (0.11-0.59); NEUT % 53.2 %; NEUT ABS # 3.64 K/uL (1.4-6.5); PLATELET COUNT 190 K/uL (130-400); RED CELL DISTRIBUTION WIDTH CV 13.2 % (11.5-14.5); RED CELL DISTRIBUTION WIDTH SD 40.8 fL (36.4-46.3); WHITE BLOOD COUNT 6.84 K/uL (4.8-10.8)
[2018-01-31 00:17] LABS: ALBUMIN 3.6 gm/dl (3.4-5.0); CALCIUM 8.9 mg/dl (8.5-10.1); CREATININE 1.13 mg/dl (0.60-1.40)
[2018-01-31 00:28] LABS: TOTAL PROTEIN 7.3 gm/dl (6.4-8.2)
[2018-01-31 01:00] VITALS: BP 134/90; PULSE 89; O2SAT 95
== END 2018-01-31 01:03 | disposition home or self-care (01) ==
LOC: C.EDB 22:58 → C.EDA 01-31 01:03
DX: F39 Unspecified mood [affective] disorder (principal); F43.9 Reaction to severe stress, unspecified; F41.9 Anxiety disorder, unspecified; F32.9 Major depressive disorder, single episode, unspecified; I10 Essential (primary) hypertension; F20.9 Schizophrenia, unspecified; F12.90 Cannabis use, unspecified, uncomplicated; Z79.899 Other long term (current) drug therapy; Z91.048 Other nonmedicinal substance allergy status

== ENCOUNTER 2021-12-11 16:26 | Inpatient (IN) ==
[2021-12-11 17:09] LABS: Appearance Urine Clear (Clear); Bilirubin Urine Negative (Negative); Blood Urine Negative (Negative); Color Urine Yellow; Glucose Urine UA Negative (Negative); Ketones Urine Trace (Negative); Leukocyte Esterase Urine Negative (Negative); Nitrite Urine Negative (Negative); Protein Urine Negative (Negative); Specific Gravity Urine 1.023 (1.000-1.030); Urobilinogen Urine Negative (Negative)
--- NOTE | 2021-12-11 17:11 | Emergency Department Note ---
Impression & Plan Psychosis, Auditory hallucinations ED Provider Note NAME: ROSA AMARO JR AGE: 36 SEX: M : 1985 ARRIVES VIA: Ambulance INFORMANT: [Patient][father] ED PROVIDER(S): [Aris Santacruz MD] CHIEF COMPLAINT: Mental health evaluation HISTORY OF PRESENT ILLNESS: The patient is a 36-year-old male who presents to the ER with 1.5 weeks of worsening mental health symptoms. He has hallucinations where he hears voices telling him he is defeated. He went to the [facility] today and they referred him to our ED. The patient is on psychiatric meds for schizophrenia, he is taking them as he should. No new stressors in his life. The patient denies being suicidal. The patient would like to be hospitalized for his mental health concerns. The patient's father is in the room. The patient lives with his father. As per the father, the patient has been more agitated and just not himself. The father has heard a few suicidal comments but there was no plan mentioned. REVIEW OF SYSTEMS: See HPI for pertinent positives and negatives. A total of ten systems were reviewed and were otherwise negative. PMHx/PSHx: See Below SOCIAL HISTORY: See Below. PHYSICAL EXAM: GENERAL: Patient is in no acute distress. HEENT: No acute trauma, normocephalic atraumatic, mucous membranes moist, no nasal congestion, no scleral icterus. NECK: No stridor, no adenopathy, no meningismus, trachea is midline. LUNGS: Clear to auscultation bilaterally, no wheeze, no rhonchi, breath sounds equal. HEART: Without murmurs gallops or rubs, regular rate and rhythm. ABDOMEN: Soft, nontender, bowel sounds positive, no hernias, no peritonitis. EXTREMITIES: No cyanosis or edema, full range of motion of all the joints without pain or difficulty, no signs for acute trauma. NEUROLOGIC: Oriented x 3, no acute motor or sensory deficits, no focal weakness. SKIN: No rash, no jaundice, no diaphoresis. Psychiatric: Flattened affect. Interactive. Voluntary. Denies being suicidal. DIFFERENTIAL DIAGNOSIS: Mood disorder, infection, schizophrenia, psychosis, medication noncompliance, suicidality, hypoglycemia, electrolyte abnormalities, cardiac sources, intracerebral event, toxicologic etiology, trauma, neurologic event, as well as other pathologies. EMERGENCY DEPARTMENT COURSE/PROCEDURES: MEDICAL DECISION MAKING: There is no leukocytosis or concerning anemia. There is a normal platelet count. No significant electrolyte abnormality or kidney failure. No concerning liver enzyme elevation. The patient appears to be in a euthyroid state. Urinalysis does not show infection. Aspirin, Tylenol and alcohol levels are undetectable. Urine tox was positive for ecstasy however, this positive value may be from his Wellbutrin use. On exam, the patient was interactive with a flat affect. He admitted to auditory hallucinations. He was voluntary, he was cooperative. The patient was felt medically clear. He was seen by psychiatry case management. The psychiatry services from our [facility] have accepted him voluntarily. He is being transferred to their floor. Past Med/Surg History Medical History Anxiety HTN (hypertension) Schizoaffective disorder Schizophrenia Sleep apnea Surgical History No pertinent past surgical history Social History Smoking Status: Former smoker Tobacco Type: Cigarettes Preferred Language: Malagasy Feels Safe at Home: Yes Allergies Allergies Allergy/AdvReac Type Severity Reaction Status Date / Time No Known Drug Allergies Allergy Unknown Verified 12/11/21 17:24 Poison [place] Extract/Poison Allergy Severe RASH Uncoded 05/28/20 23:28 [place] Extra Home Meds Home Medications Medication Instructions Recorded Confirmed bupropion HCl 150 mg tablet,12 hr 150 mg PO BID 04/21/21 12/11/21 sustained-release (Wellbutrin SR) cariprazine 3 mg capsule (Vraylar) 3 mg PO DAILY 04/21/21 12/11/21 metformin 500 mg tablet 500 mg PO BID 04/21/21 12/11/21 Results & Data (ED) Vital Signs Vital Signs - 24 hr 12/11/21 16:21 12/11/21 16:50 12/11/21 18:30 Temperature 37 C Temperature Source Oral Pulse Rate 93 H Pulse Rate [Finger] 93 H 91 H Respiratory Rate 16 18 20 Respiratory Effort / Characteristics Non-Labored Respiratory Depth Normal Respiratory Pattern Regular Blood Pressure 148/93 H Blood Pressure [Left Arm] 148/93 H 136/98 Blood Pressure Mean 111 Blood Pressure Mean [Left Arm] 111 110 Blood Pressure Position Sitting Blood Pressure Position [Left Arm] Sitting Pulse Oximetry 98 98 94 Oxygen Delivery Method Room Air Sepsis Recent Fever Within 48 Hours No Sepsis New/Unexplained Change in Mental Status N/A Sepsis Action Taken by Nursing No Action Required 12/11/21 21:11 Temperature Temperature Source Pulse Rate Pulse Rate [Finger] 88 Respiratory Rate 20 Respiratory Effort / Characteristics Non-Labored Respiratory Depth Normal Respiratory Pattern Blood Pressure Blood Pressure [Left Arm] 136/87 Blood Pressure Mean Blood Pressure Mean [Left Arm] 103 Blood Pressure Position Blood Pressure Position [Left Arm] Pulse Oximetry 98 Oxygen Delivery Method Room Air Sepsis Recent Fever Within 48 Hours Sepsis New/Unexplained Change in Mental Status Sepsis Action Taken by Longterm Medications Current Medication List: was personally reviewed by me Laboratory Data Attestation: I reviewed the patient's lab results. Result diagrams: 12/11/21 16:45 12/11/21 16:45 Lab Results 12/11/21 12/11/21 12/11/21 Range/Units 16:41 16:41 16:45 WBC 6.19 (4.8-10.8) K/uL RBC 5.22 (4.7-6.1) M/uL Hgb 15.6 (14.0-18.0) g/dL Hct 45.9 (42-52) % MCV 87.9 (80-100) fL MCH 29.9 (25-34) pg MCHC 34.0 (32-36) g/dL RDW Std Deviation 41.9 (36.4-46.3) fL RDW Coeff of [place] 13.0 (11.5-14.5) % Plt Count 237 (130-400) K/uL MPV 11.8 H (7.4-10.4) fL Immature Gran % (Auto) 0.2 % Neut % (Auto) 63.3 % Lymph % (Auto) 25.2 % Bertie % (Auto) 6.9 % Eos % (Auto) 3.9 % Baso % (Auto) 0.5 % Neut # (Auto) 3.92 (1.4-6.5) K/uL Lymph # (Auto) 1.56 (1.2-3.4) K/uL Bertie # (Auto) 0.43 (0.11-0.59) K/uL Eos # (Auto) 0.24 (0-0.5) K/uL Baso # (Auto) 0.03 (0-0.2) K/uL Immature Gran # (Auto) 0.01 (0.00-0.02) K/uL Sodium (136-145) mmol/L Potassium (3.5-5.1) mmol/L Chloride (98-107) mmol/L Carbon Dioxide (21-32) mmol/L Anion Gap (3-11) BUN (6-23) mg/dl Creatinine (0.6-1.4) mg/dl Est Cr Clr Drug Dosing ml/min Est GFR ( Amer) ml/min Est GFR (Non-Af Amer) ml/min BUN/Creatinine Ratio (10-20) Glucose (70-99(Fasting)) mg/dl Calcium (8.5-10.1) mg/dl Total Bilirubin (0.2-1.0) mg/dl AST (13-39) U/L ALT (7-52) U/L Alkaline Phosphatase (34-104) U/L Total Protein (6.0-8.3) gm/dl Albumin (3.4-5.0) gm/dl Globulin (2.5-4.0) gm/dl Albumin/Globulin Ratio (0.9-2) TSH (0.300-4.500) uIu/ml Urine Color Yellow Urine Appearance Clear (Clear) Urine pH 5.0 (4.5-7.5) Ur Specific [place] 1.023 (1.000-1.030) Urine Protein Negative (Negative) Urine Glucose (UA) Negative (Negative) Urine Ketones Trace H (Negative) Urine Blood Negative (Negative) Urine Nitrite Negative (Negative) Urine Bilirubin Negative (Negative) Urine Urobilinogen Negative (Negative) Ur Leukocyte Esterase Negative (Negative) Salicylates (3.0-30) mg/dl Urine Opiates Screen Neg (Neg) Ur Methadone, Qual Neg (Neg) Acetaminophen (10-30) ug/ml Urine Barbiturates Neg (Neg) Ur Phencyclidine (PCP) Neg (Neg) U Amphetamin/Meth Scrn Neg (Neg) MDMA (Ecstasy) Screen Pos H (Neg) U Benzodiazepines Scrn Neg (Neg) [place] (0.6-1.2) mmol/L Ur Cocaine Metabolite Neg (Neg) U Marijuana (THC) Screen Neg (Neg) Ethyl Alcohol mg/dL (<10.0) mg/dl SARS-CoV-2, RNA, NAAT (NEGATIVE) 12/11/21 12/11/21 12/11/21 Range/Units 16:45 16:45 16:45 WBC (4.8-10.8) K/uL RBC (4.7-6.1) M/uL Hgb (14.0-18.0) g/dL Hct (42-52) % MCV (80-100) fL MCH (25-34) pg MCHC (32-36) g/dL RDW Std Deviation (36.4-46.3) fL RDW Coeff of [place] (11.5-14.5) % Plt Count (130-400) K/uL MPV (7.4-10.4) fL Immature Gran % (Auto) % Neut % (Auto) % Lymph % (Auto) % Bertie % (Auto) % Eos % (Auto) % Baso % (Auto) % Neut # (Auto) (1.4-6.5) K/uL Lymph # (Auto) (1.2-3.4) K/uL Bertie # (Auto) (0.11-0.59) K/uL Eos # (Auto) (0-0.5) K/uL Baso # (Auto) (0-0.2) K/uL Immature Gran # (Auto) (0.00-0.02) K/uL Sodium 137 (136-145) mmol/L Potassium 4.1 (3.5-5.1) mmol/L Chloride 105 (98-107) mmol/L Carbon Dioxide 25 (21-32) mmol/L Anion Gap 7 (3-11) BUN 17 (6-23) mg/dl Creatinine 0.92 (0.6-1.4) mg/dl Est Cr Clr Drug Dosing 132.2 ml/min Est GFR ( Amer) 121.9 ml/min Est GFR (Non-Af Amer) 105.1 ml/min BUN/Creatinine Ratio 18.5 (10-20) Glucose 95 (70-99(Fasting)) mg/dl Calcium 9.5 (8.5-10.1) mg/dl Total Bilirubin 0.5 (0.2-1.0) mg/dl AST 12 L (13-39) U/L ALT 18 (7-52) U/L Alkaline Phosphatase 68 (34-104) U/L Total Protein 7.0 (6.0-8.3) gm/dl Albumin 4.3 (3.4-5.0) gm/dl Globulin 2.7 (2.5-4.0) gm/dl Albumin/Globulin Ratio 1.6 (0.9-2) TSH 1.552 (0.300-4.500) uIu/ml Urine Color Urine Appearance (Clear) Urine pH (4.5-7.5) Ur Specific [place] (1.000-1.030) Urine Protein (Negative) Urine Glucose (UA) (Negative) Urine Ketones (Negative) Urine Blood (Negative) Urine Nitrite (Negative) Urine Bilirubin (Negative) Urine Urobilinogen (Negative) Ur Leukocyte Esterase (Negative) Salicylates < 3.0 L (3.0-30) mg/dl Urine Opiates Screen (Neg) Ur Methadone, Qual (Neg) Acetaminophen < 3 L (10-30) ug/ml Urine Barbiturates (Neg) Ur Phencyclidine (PCP) (Neg) U Amphetamin/Meth Scrn (Neg) MDMA (Ecstasy) Screen (Neg) U Benzodiazepines Scrn (Neg) [place] < 0.1 L (0.6-1.2) mmol/L Ur Cocaine Metabolite (Neg) U Marijuana (THC) Screen (Neg) Ethyl Alcohol mg/dL (<10.0) mg/dl SARS-CoV-2, RNA, NAAT (NEGATIVE) 12/11/21 12/11/21 Range/Units 16:45 16:45 WBC (4.8-10.8) K/uL RBC (4.7-6.1) M/uL Hgb (14.0-18.0) g/dL Hct (42-52) % MCV (80-100) fL MCH (25-34) pg MCHC (32-36) g/dL RDW Std Deviation (36.4-46.3) fL RDW Coeff of [place] (11.5-14.5) % Plt Count (130-400) K/uL MPV (7.4-10.4) fL Immature Gran % (Auto) % Neut % (Auto) % Lymph % (Auto) % Bertie % (Auto) % Eos % (Auto) % Baso % (Auto) % Neut # (Auto) (1.4-6.5) K/uL Lymph # (Auto) (1.2-3.4) K/uL Bertie # (Auto) (0.11-0.59) K/uL Eos # (Auto) (0-0.5) K/uL Baso # (Auto) (0-0.2) K/uL Immature Gran # (Auto) (0.00-0.02) K/uL Sodium (136-145) mmol/L Potassium (3.5-5.1) mmol/L Chloride (98-107) mmol/L Carbon Dioxide (21-32) mmol/L Anion Gap (3-11) BUN (6-23) mg/dl Creatinine (0.6-1.4) mg/dl Est Cr Clr Drug Dosing ml/min Est GFR ( Amer) ml/min Est GFR (Non-Af Amer) ml/min BUN/Creatinine Ratio (10-20) Glucose (70-99(Fasting)) mg/dl Calcium (8.5-10.1) mg/dl Total Bilirubin (0.2-1.0) mg/dl AST (13-39) U/L ALT (7-52) U/L Alkaline Phosphatase (34-104) U/L Total Protein (6.0-8.3) gm/dl Albumin (3.4-5.0) gm/dl Globulin (2.5-4.0) gm/dl Albumin/Globulin Ratio (0.9-2) TSH (0.300-4.500) uIu/ml Urine Color Urine Appearance (Clear) Urine pH (4.5-7.5) Ur Specific [place] (1.000-1.030) Urine Protein (Negative) Urine Glucose (UA) (Negative) Urine Ketones (Negative) Urine Blood (Negative) Urine Nitrite (Negative) Urine Bilirubin (Negative) Urine Urobilinogen (Negative) Ur Leukocyte Esterase (Negative) Salicylates (3.0-30) mg/dl Urine Opiates Screen (Neg) Ur Methadone, Qual (Neg) Acetaminophen (10-30) ug/ml Urine Barbiturates (Neg) Ur Phencyclidine (PCP) (Neg) U Amphetamin/Meth Scrn (Neg) MDMA (Ecstasy) Screen (Neg) U Benzodiazepines Scrn (Neg) [place] (0.6-1.2) mmol/L Ur Cocaine Metabolite (Neg) U Marijuana (THC) Screen (Neg) Ethyl Alcohol mg/dL < 10.0 (<10.0) mg/dl SARS-CoV-2, RNA, NAAT NEGATIVE (NEGATIVE) Administered Medications Metformin HCl (Metformin Hcl 500 Mg Tab) 500 mg PO BID VANNESA Stop: 01/10/22 20:59 Last Admin: 12/11/21 21:16 Dose: 500 mg Documented by: [id number] Discharge Plan Visit Data Chief Complaint: Mental Health Evaluation ED Provider: Aris Santacruz Discharge Problem: Psychosis, Auditory hallucinations Patient Disposition: Admitted As Inpatient Condition: Good Discharge Instructions Interventions: ED Discharge Assessment Last Done: 12/11/21 21:17 Forms Stand Alone Forms: [facility], Suicide Prevention Resources Prescriptions Prescriptions: No Action metformin 500 mg Tablet 500 mg PO BID RF: 0 bupropion HCl [Wellbutrin SR] 150 mg Tablet Sustained-Release 12 Hr 150 mg PO BID RF: 0 Vraylar 3 mg Capsule 3 mg PO DAILY RF: 0 Referrals Referrals: Garcia Ayon MD [Primary Care Provider] -
[2021-12-11 17:17] LABS: Basophils # (auto) 0.03 K/uL (0-0.2); Basophils % (auto) 0.5 %; Eosinophils # (auto) 0.24 K/uL (0-0.5); Eosinophils % (auto) 3.9 %; Hematocrit (blood only) 45.9 % (42-52); Hemoglobin 15.6 g/dL (14.0-18.0); Immature Granulocytes # (auto) 0.01 K/uL (0.00-0.02); Immature Granulocytes % (auto) 0.2 %; Lymphocytes # (auto) 1.56 K/uL (1.2-3.4); Lymphocytes % (auto) 25.2 %; Mean Corpuscular Hemoglobin 29.9 pg (25-34); Mean Corpuscular Volume 87.9 fL (80-100); Mean Platelet Volume 11.8 fL (7.4-10.4); Monocytes # (auto) 0.43 K/uL (0.11-0.59); Monocytes % (auto) 6.9 %; Neutrophils # (auto) 3.92 K/uL (1.4-6.5); Neutrophils % (auto) 63.3 %; Platelet Count 237 K/uL (130-400); RDW Standard Deviation 41.9 fL (36.4-46.3); Red Blood Count 5.22 M/uL (4.7-6.1); White Blood Count 6.19 K/uL (4.8-10.8)
[2021-12-11 17:29] LABS: Amphetamines+Metham, Urine Neg (Neg); Barbiturates, Urine Neg (Neg); Benzodiazepine, Urine Neg (Neg); Cocaine, Urine Neg (Neg); MDMA (Ecstacy), Urine Pos (Neg); Methadone, Urine Neg (Neg); Opiate, Urine Neg (Neg); Phencyclidine, Urine Neg (Neg)
[2021-12-11 17:37] LABS: Albumin Globulin Ratio 1.6 (0.9-2); Albumin Level 4.3 gm/dl (3.4-5.0); BUN Creatinine Ratio 18.5 (10-20); Bilirubin,Total 0.5 mg/dl (0.2-1.0); Calcium 9.5 mg/dl (8.5-10.1); Creatinine Clr Calc Pharmacy 132.2 ml/min; Est GFR (African American) 121.9 ml/min; Est GFR (Non-African American) 105.1 ml/min; Globulin 2.7 gm/dl (2.5-4.0); Potassium 4.1 mmol/L (3.5-5.1)
[2021-12-11 17:39] LABS: Acetaminophen < 3 ug/ml (10-30); Salicylate < 3.0 mg/dl (3.0-30)
[2021-12-11 18:28] LABS: Lithium < 0.1 mmol/L (0.6-1.2)
[2021-12-11] MEDS ORDERED: ACETAMINOPHEN 325 MG TAB PO PRN (20:27)
[2021-12-11] MEDS ORDERED: BISMUTH SUBSALICYLATE LIQD 236 ML PO PRN (20:27)
[2021-12-11] MEDS ORDERED: SODIUM CHLORIDE 0.65% NA SOLN 45 ML (OCEAN) PRN (20:27)
[2021-12-11] MEDS ORDERED: ALUMINUM/MAGNESIUM SUSP 30 ML UDC PO PRN (20:27)
[2021-12-11] MEDS ORDERED: hydrOXYzine HCl 25 MG TAB PO PRN ×2 (20:27)
[2021-12-11] MEDS ORDERED: MAGNESIUM HYDROXIDE SUSP 30 ML UDC PO PRN (20:27)
[2021-12-11] MEDS ORDERED: haloperidoL 5 MG TAB PO PRN (20:29)
[2021-12-11] MEDS ORDERED: LORazepam 1 MG TAB PO PRN (20:29)
[2021-12-11] MEDS ORDERED: BENZTROPINE MESYLATE 1 MG TAB PO PRN (20:29)
[2021-12-11] MEDS: metFORMIN HCL 500 MG TAB PO SCH (21:16)
[2021-12-11] MEDS ORDERED: FLUARIX QUADRIVALENT 0.5 ML SYR IM ONE (22:42)
[2021-12-12 08:10] LABS: Chol HDL Ratio 3.4 (0-5)
[2021-12-12] MEDS: metFORMIN HCL 500 MG TAB PO SCH ×2 (08:44→17:45)
[2021-12-12] MEDS ORDERED: NON-FORMULARY MEDICATION (Cariprazine [Vraylar] 3 mg Capsule) PO SCH (09:00)
[2021-12-12] MEDS ORDERED: metFORMIN HCL 500 MG TAB PO SCH (10:44)
[2021-12-12] MEDS: buPROPion SR 150 MG TABCR PO SCH ×2 (11:27→17:45)
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
[2021-12-13 07:31] LABS: Estimated Average Glucose 111 mg/dl; Hemoglobin A1C 5.5 % (4.5-5.6)
[2021-12-13] MEDS: buPROPion SR 150 MG TABCR PO SCH ×2 (08:37→17:29)
[2021-12-13] MEDS: metFORMIN HCL 500 MG TAB PO SCH ×2 (08:37→17:29)
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
[2021-12-13] MEDS ORDERED: VRAYLAR PO ONE (13:34)
[2021-12-14] MEDS: buPROPion SR 150 MG TABCR PO SCH ×2 (09:08→17:08)
[2021-12-14] MEDS: metFORMIN HCL 500 MG TAB PO SCH ×2 (09:09→17:08)
[2021-12-14] MEDS: CARIPRAZINE HCL 3 MG PO SCH (09:10)
--- NOTE | 2021-12-14 15:28 | Psychiatric Progress Note ---
Date of Service December 14, 2021 Impression / Recommendations Impression 36 yo male with significant history of psychosis and past suicide attempts brought to ED by family for progressive decline in mood, recurrent of mood congruent auditory ballard, increase in anxiety and intermittent expressing passive SI. Continued inpatient hospitalization is medically necessary for ongoing monitoring and safety. MNPR as trauma hx as well as history of aggression/incarceration. 12/14/21: improving, tolerating increase in Vraylar (1) Schizoaffective disorder: (2) Sleep apnea: 12/14/21: continue current meds and tx plan. Needs family meeting. 12/13/21: I'd be hesitant to increase Wellbutrin for his depression given dopaminergic properties (hx psychosis) and dose would be >300. Patient agreed to increase Vraylar. His fasting glucose and lipid panel were reviewed. 12/12/21: The patient was admitted to the [facility] ([facility] unit) on q15 min checks (behavioral with suicide precautions) for safety. The patient will participate in group, recreational, and milieu therapies and will be offered additional individual and family sessions as clinically appropriate. Continue current medications pending availability of records/collaboration with psych clinic as could titrate Vraylar or augment Wellbutrin with another antidepressant. Inventory Assets Strengths: supportive family, help seeking, med compliant Needs: outpatient services in addition to med management, family meeting Risk Factors Assessment Male: Yes Do You Have Access To A Gun?: No (father has firearm but it is locked) Health Problems: Yes (untreated sleep apnea) Previous Attempt: Yes Family History of Suicide: No Previous Psychiatric Hospitalization: Yes Protective Factors Assessment Employed: No Supportive Family: Yes Interval History Identifying Information ROSA AMARO is a 36-year-old M who currently lives in [place], has a history of schizophrenia and multiple inpatient admissions, and was admitted on 12/11/21 21:26 on a 201 voluntary commitment for suicidal ideation and hallucinations. Chief Complaint "I'm feeling some better." Review of Systems Sleep Information Total Hours of Sleep: 5.5 Sleep Comments: pr on q-15 minute checks Meal Information Percent Meal Consumed - Breakfast: 100 Percent Meal Consumed - Lunch: 100 Percent Meal Consumed - Dinner: 100 Subjective Subjective Patient was seen & assessed and interval progress reviewed with nursing and social work. No new issues overnight. Walks around in room alot but denies akathisia. Tolerating increase in Vraylar. Does not appear to be reponding to internal stimuli. Selective with groups. Physical Exam Psychiatric Orientation: alert and oriented x 3 Apperance: appropriately dressed and appropriately groomed Eye Contact: + fair eye contact Motor Behavior: no abnormal motor movements Speech: normal rate/rhythm/volume of speech Affect: + depressed affect Mood: + depressed mood Thought Process: + concrete thought process Thought Content: reality based without delusions Suicidal Thoughts: denies suicidal thoughts Homicidal Thoughts: denies homicidal thoughts Hallucinations: no auditory hallucinations and no visual hallucinations Cognition: attention grossly intact and language grossly intact Estimated Intelligence: consistent with education level Insight: + limited insight Judgement: + limited judgement Vital Signs (Past 24 Hours) Last Vital Signs Temp 36.5 C 12/14/21 06:27 Pulse 79 12/14/21 06:33 Resp 18 12/14/21 06:27 BP 126/86 12/14/21 06:33 Pulse Ox 95 12/11/21 22:47 Results & Data ([facility]) Current Inpatient Medications Current Inpatient Medications: Current Inpatient Medications Acetaminophen (Acetaminophen 325 Mg Tab) 650 mg PO Q4H PRN PRN Reason: Headache or Minor Fever Stop: 01/10/22 20:26 Al Hydrox/Mg Hydrox/Simethicone (Aluminum/Magnesium Susp 30 Ml Udc) 30 ml PO Q4H PRN PRN Reason: GI Upset Stop: 01/10/22 20:26 Benztropine Mesylate (Benztropine Mesylate 1 Mg Tab) 1 mg PO Q6 PRN PRN Reason: dystonia Stop: 01/10/22 20:28 Bismuth Subsalicylate (Bismuth Subsalicylate Liqd 236 Ml) 15 ml PO PRN PRN PRN Reason: Loose Stool Stop: 01/10/22 20:26 Bupropion HCl (Bupropion Sr 150 Mg Tabcr) 150 mg PO BIDM VANNESA Stop: 01/11/22 10:44 Last Admin: 12/14/21 09:08 Dose: 150 mg Documented by: Cariprazine (Cariprazine Hcl 3mg) 2 ea PO QAM VANNESA Stop: 01/13/22 08:59 Last Admin: 12/14/21 09:10 Dose: 2 ea Documented by: Haloperidol (Haloperidol 5 Mg Tab) 5 mg PO Q6 PRN PRN Reason: Anxiety/Agitation Stop: 01/10/22 20:28 Hydroxyzine HCl (Hydroxyzine Hcl 25 Mg Tab) 50 mg PO HSZ PRN PRN Reason: Insomnia Stop: 01/10/22 20:26 Hydroxyzine HCl (Hydroxyzine Hcl 25 Mg Tab) 25 mg PO Q4H PRN PRN Reason: Anxiety Stop: 01/10/22 20:26 Lorazepam (Lorazepam 1 Mg Tab) 1 mg PO Q6 PRN PRN Reason: Anxiety/Agitation Stop: 01/10/22 20:28 Magnesium Hydroxide (Magnesium Hydroxide Susp 30 Ml Udc) 30 ml PO DAILY PRN PRN Reason: Constipation Stop: 01/10/22 20:26 Metformin HCl (Metformin Hcl 500 Mg Tab) 500 mg PO BIDM VANNESA Stop: 01/11/22 17:44 Last Admin: 12/14/21 09:09 Dose: 500 mg Documented by: Sodium Chloride (Sodium Chloride 0.65% Na Soln 45 Ml ([place])) 1 - 2 sprays NA PRN PRN PRN Reason: Nasal Dryness/Congestion Stop: 01/10/22 20:26 Mental Health & Subst Abuse Tx Psychiatrist Name of Psychiatrist: [facility] - [facility]edee Adame Psychiatrist's Date of Appointment with Psychiatrist: 12/24/21 Time of Appointment with Psychiatrist: 9:30 AM Psychiatric Appointment Comment: [address] [place] [address] Therapist Name of Therapist: [facility] Therapist's Date of Therapist Appointment: 12/31/21 Time of Therapist Appointment: 10:30 AM Therapy Appointment Comment: [address] [place] [address] Post Discharge Appointments Primary Care Physician Name Of Family Doctor: Everett Ayon
[2021-12-15] MEDS: metFORMIN HCL 500 MG TAB PO SCH (08:49)
[2021-12-15] MEDS: buPROPion SR 150 MG TABCR PO SCH (08:49)
[2021-12-15] MEDS: CARIPRAZINE HCL 3 MG PO SCH (08:50)
--- NOTE | 2021-12-15 13:29 | Discharge Summary ---
Date of Service December 15, 2021 History of Present Illness Paul reports recurrence of depressive symptoms despite ongoing medication compliance and care with Dr. Monson. His parents have noticed he is not doing as well and he notes low motivation and feeling "slowed down" due to his depression. As his mood issue persisted he started to have ballard of hearing his name called or you're "defeated". He has experienced suicidal thoughts but denied a specific plan to self-harm, "I just know I need to get help and be inpatient." He denies recent mood changes or conflicts at home. He denies the level of paranoia or agitation that were noted during his last admission in 2017. He reports low energy, "probably" related to not using CPAP for the past year but still doesn't tolerate the mask. He is unable to list activities that he enjoys at this time. Physical Exam Psychiatric See admission H&P and DOD assessment. Vital Signs (Past 24 Hours) Last Vital Signs Temp 36.5 C 12/15/21 06:27 Pulse 92 H 12/15/21 06:28 Resp 16 12/15/21 06:27 BP 92/66 L 12/15/21 06:28 Pulse Ox 95 12/11/21 22:47 Principal Diagnosis schizoaffective disorder Psychiatric Data See daily stay summary. In short, safety was maintained and the patient was cooperative with care. Medication changes included increasing Vraylar to 6 mg and they tolerated this well. A family session was held and safety plan was completed prior to discharge. Day of Discharge Assessment Today the patient voices readiness for discharge. They note improvement in mood and deny thoughts to harm self or others. Thoughts remain organized and they are improved from admission. He has consistently denied hallucinations and SI and has been attending to self-care. He remains somewhat isolative to his room but there is no evidence this is due to paranoia and likely appears a bit flatter than he is feeling given negative symptoms of his chronic psychotic illness. His psychomotor retardation has resolved. They agree to take mediations as prescribed and keep follow-up appointments. They are stable for discharge to outpatient level of care. Transition of Care Transition Of Care Record: was reviewed with the patient Advance Directives Advance Directives Information Provided: Yes Advance Directives: No Mental Health Advance Directive: No Advance Directives on File: No Living Will: No Power of Fuse Maker: No Advance Directives Reason:: Declines as Mental Health Visit. Risk Factors Assessment Male: Yes Do You Have Access To A Gun?: No (father has firearm but it is locked) Health Problems: Yes (untreated sleep apnea) Previous Attempt: Yes Family History of Suicide: No Previous Psychiatric Hospitalization: Yes Protective Factors Assessment Employed: No Supportive Family: Yes Tobacco Cessation at Discharge Tobacco Cessation Medication Prescribed at Discharge: Not Applicable/Non-Smoker Total Time Total Time Spent: Greater Than 30 Minutes Total Time Includes: Examination of the patient, Discharge Planning and Medication Reconciliation Discharge Data Lab Results 12/11/21 12/11/21 12/11/21 16:41 16:41 16:45 WBC 6.19 RBC 5.22 Hgb 15.6 Hct 45.9 MCV 87.9 MCH 29.9 MCHC 34.0 RDW Std Deviation 41.9 RDW Coeff of [place] 13.0 Plt Count 237 MPV 11.8 H Immature Gran % (Auto) 0.2 Neut % (Auto) 63.3 Lymph % (Auto) 25.2 Cherry % (Auto) 6.9 Eos % (Auto) 3.9 Baso % (Auto) 0.5 Neut # (Auto) 3.92 Lymph # (Auto) 1.56 Cherry # (Auto) 0.43 Eos # (Auto) 0.24 Baso # (Auto) 0.03 Immature Gran # (Auto) 0.01 Sodium Potassium Chloride Carbon Dioxide Anion Gap BUN Creatinine Est Cr Clr Drug Dosing Est GFR ( Amer) Est GFR (Non-Af Amer) BUN/Creatinine Ratio Glucose Estimat Average Glucose Hemoglobin A1c Calcium Total Bilirubin AST ALT Alkaline Phosphatase Total Protein Albumin Globulin Albumin/Globulin Ratio Triglycerides Cholesterol LDL Cholesterol, Calc VLDL Cholesterol, Calc HDL Cholesterol Cholesterol/HDL Ratio TSH Urine Color Yellow Urine Appearance Clear Urine pH 5.0 Ur Specific [place] 1.023 Urine Protein Negative Urine Glucose (UA) Negative Urine Ketones Trace H Urine Blood Negative Urine Nitrite Negative Urine Bilirubin Negative Urine Urobilinogen Negative Ur Leukocyte Esterase Negative Salicylates Urine Opiates Screen Neg Ur Methadone, Qual Neg Acetaminophen Urine Barbiturates Neg Ur Phencyclidine (PCP) Neg U Amphetamin/Meth Scrn Neg MDMA (Ecstasy) Screen Pos H U Benzodiazepines Scrn Neg [place] Ur Cocaine Metabolite Neg U Marijuana (THC) Screen Neg Ethyl Alcohol mg/dL SARS-CoV-2, RNA, NAAT 0312/11/21 12/11/21 16:45 16:45 16:45 WBC RBC Hgb Hct MCV MCH MCHC RDW Std Deviation RDW Coeff of [place] Plt Count MPV Immature Gran % (Auto) Neut % (Auto) Lymph % (Auto) Cherry % (Auto) Eos % (Auto) Baso % (Auto) Neut # (Auto) Lymph # (Auto) Cherry # (Auto) Eos # (Auto) Baso # (Auto) Immature Gran # (Auto) Sodium 137 Potassium 4.1 Chloride 105 Carbon Dioxide 25 Anion Gap 7 BUN 17 Creatinine 0.92 Est Cr Clr Drug Dosing 132.2 Est GFR ( Amer) 121.9 Est GFR (Non-Af Amer) 105.1 BUN/Creatinine Ratio 18.5 Glucose 95 Estimat Average Glucose Hemoglobin A1c Calcium 9.5 Total Bilirubin 0.5 AST 12 L ALT 18 Alkaline Phosphatase 68 Total Protein 7.0 Albumin 4.3 Globulin 2.7 Albumin/Globulin Ratio 1.6 Triglycerides Cholesterol LDL Cholesterol, Calc VLDL Cholesterol, Calc HDL Cholesterol Cholesterol/HDL Ratio TSH 1.552 Urine Color Urine Appearance Urine pH Ur Specific [place] Urine Protein Urine Glucose (UA) Urine Ketones Urine Blood Urine Nitrite Urine Bilirubin Urine Urobilinogen Ur Leukocyte Esterase Salicylates < 3.0 L Urine Opiates Screen Ur Methadone, Qual Acetaminophen < 3 L Urine Barbiturates Ur Phencyclidine (PCP) U Amphetamin/Meth Scrn MDMA (Ecstasy) Screen U Benzodiazepines Scrn [place] < 0.1 L Ur Cocaine Metabolite U Marijuana (THC) Screen Ethyl Alcohol mg/dL SARS-CoV-2, RNA, NAAT 12/11/21 12/11/21 12/12/21 16:45 16:45 07:25 WBC RBC Hgb Hct MCV MCH MCHC RDW Std Deviation RDW Coeff of [place] Plt Count MPV Immature Gran % (Auto) Neut % (Auto) Lymph % (Auto) Cherry % (Auto) Eos % (Auto) Baso % (Auto) Neut # (Auto) Lymph # (Auto) Cherry # (Auto) Eos # (Auto) Baso # (Auto) Immature Gran # (Auto) Sodium Potassium Chloride Carbon Dioxide Anion Gap BUN Creatinine Est Cr Clr Drug Dosing Est GFR ( Amer) Est GFR (Non-Af Amer) BUN/Creatinine Ratio Glucose Estimat Average Glucose 111 Hemoglobin A1c 5.5 Calcium Total Bilirubin AST ALT Alkaline Phosphatase Total Protein Albumin Globulin Albumin/Globulin Ratio Triglycerides Cholesterol LDL Cholesterol, Calc VLDL Cholesterol, Calc HDL Cholesterol Cholesterol/HDL Ratio TSH Urine Color Urine Appearance Urine pH Ur Specific [place] Urine Protein Urine Glucose (UA) Urine Ketones Urine Blood Urine Nitrite Urine Bilirubin Urine Urobilinogen Ur Leukocyte Esterase Salicylates Urine Opiates Screen Ur Methadone, Qual Acetaminophen Urine Barbiturates Ur Phencyclidine (PCP) U Amphetamin/Meth Scrn MDMA (Ecstasy) Screen U Benzodiazepines Scrn [place] Ur Cocaine Metabolite U Marijuana (THC) Screen Ethyl Alcohol mg/dL < 10.0 SARS-CoV-2, RNA, NAAT NEGATIVE 12/12/21 07:26 WBC RBC Hgb Hct MCV MCH MCHC RDW Std Deviation RDW Coeff of [place] Plt Count MPV Immature Gran % (Auto) Neut % (Auto) Lymph % (Auto) Cherry % (Auto) Eos % (Auto) Baso % (Auto) Neut # (Auto) Lymph # (Auto) Cherry # (Auto) Eos # (Auto) Baso # (Auto) Immature Gran # (Auto) Sodium Potassium Chloride Carbon Dioxide Anion Gap BUN Creatinine Est Cr Clr Drug Dosing Est GFR ( Amer) Est GFR (Non-Af Amer) BUN/Creatinine Ratio Glucose Estimat Average Glucose Hemoglobin A1c Calcium Total Bilirubin AST ALT Alkaline Phosphatase Total Protein Albumin Globulin Albumin/Globulin Ratio Triglycerides 126 Cholesterol 158 LDL Cholesterol, Calc 87 VLDL Cholesterol, Calc 25 HDL Cholesterol 46 Cholesterol/HDL Ratio 3.4 TSH Urine Color Urine Appearance Urine pH Ur Specific [place] Urine Protein Urine Glucose (UA) Urine Ketones Urine Blood Urine Nitrite Urine Bilirubin Urine Urobilinogen Ur Leukocyte Esterase Salicylates Urine Opiates Screen Ur Methadone, Qual Acetaminophen Urine Barbiturates Ur Phencyclidine (PCP) U Amphetamin/Meth Scrn MDMA (Ecstasy) Screen U Benzodiazepines Scrn [place] Ur Cocaine Metabolite U Marijuana (THC) Screen Ethyl Alcohol mg/dL SARS-CoV-2, RNA, NAAT Hospital Course (1) Schizoaffective disorder: (2) Sleep apnea: 12/14/21: continue current meds and tx plan. Needs family meeting. 12/13/21: I'd be hesitant to increase Wellbutrin for his depression given dopaminergic properties (hx psychosis) and dose would be >300. Patient agreed to increase Vraylar. His fasting glucose and lipid panel were reviewed. 12/12/21: The patient was admitted to the [facility] ([facility] inpatient mental health unit) on q15 min checks (behavioral with suicide precautions) for safety. The patient will participate in group, recreational, and milieu therapies and will be offered additional individual and family sessions as clinically appropriate. Continue current medications pending availability of records/collaboration with psych clinic as could titrate Vraylar or augment Wellbutrin with another antidepressant. Mental Health & Subst Abuse Tx Psychiatrist Name of Psychiatrist: [facility] - [facility] Adame Psychiatrist's Date of Appointment with Psychiatrist: 12/24/21 Time of Appointment with Psychiatrist: 9:30 AM Psychiatric Appointment Comment: [address] [place] [address] Therapist Name of Therapist: [facility] Therapist's Date of Therapist Appointment: 12/31/21 Time of Therapist Appointment: 10:30 AM Therapy Appointment Comment: [address] [place] [address] Radio Officer Name of Radio Officer: [facility] Phone Number for Radio Officer: [phone] Case Management Appointment Comment: Call if you become interested in Case Management services. Post Discharge Appointments Primary Care Physician Name Of Family Doctor: [facility] - Everett Ayon (will see Jennifer Hood PA-C) Primary Care Date of Appointment with PCP: 12/27/21 Time of Appointment with PCP: 9:30 AM Provider Appointment Comment: Kenji Keyes, [facility] [address], [facility] [address] Smoking Cessation Counseling Tobacco Cessation Medication Prescribed at Discharge: Not Applicable/Non-Smoker Discharge Plan Discharge Items Patient Disposition: Home - Self-Care Reason For Visit: [facility] EVAL Discharge Diagnosis: schizoaffective disorder Condition on Discharge: Good Activity: Resume your previous activity Non-emergency contact: Primary Care Provider, Psychiatrist and Therapist Call non-emergency contact if: you have any medication questions and your symptoms worsen Follow-up/Referrals: Garcia Ayon MD [Primary Care Provider] - Diet: Regular Addtl Attending Provider Instructions: SPECIAL CARE INSTRUCTIONS: 1. Follow through with your scheduled aftercare appointments. If unable to keep an appointment, please call to reschedule. 2. Take your medication only as prescribed. Medication should not be changed or stopped without the approval of your doctor. In the event of worsening symptoms or concerns about side effects, contact your doctor immediately. 3. Utilize new healthy coping skills, anger management skills, and stress management skills learned during your hospitalization. Journal feelings and process them with a support person. Identify stressors or situations that may result in relapse, deterioration or inappropriate behaviors and develop a plan to deal with those issues. 4. If your coping skills are ineffective and you are in crisis, contact your outpatient providers for direction. If unable to reach your providers, please call the [facility] CRISIS LINE AT , go to the [facility] walk-in center at [address], [address], [place], or go to the closest Emergency Room. 5. Avoid alcohol and un-prescribed drugs. 6. You have been provided with the Mental Health Advance Directives Pamphlet for your review. 7. Your condition is stable for discharge to outpatient level of care, but recovery is an ongoing process. Ifthoughts to harm yourself or others return, follow the safety plan developed during your stay. Planning for a safe return home includes securing weapons. Our treatment team recommends weaponsbe removed from the home until your outpatient provider reassesses your progress. In rare cases where the items themselvescannot be removed, guns and ammunitionshould be secured separatelyand keys stored by a reliable personoutside of the home. If you were admitted on an involuntary commitment, the police or other legal authorities may be involved in this process. AFTERCARE APPOINTMENTS: * Please call your insurance company prior to your scheduled appointment to confirm your aftercare providers are covered. Take your insurance information to your appointments. WHO TO CALL AND WHEN: Medical Emergencies: For questions or emergencies related to your hospital stay, please contact the Inpatient Behavioral Health Unit at [phone]. A metal control coordinator is on-call 10/04 for the Behavioral Health Unit for emergencies At any time you feel your situation is an emergency, you may also call 911 immediately. Pending Studies at Discharge: No Stand-Alone Forms: My [employer], Smoking Cessation Medications and DC Order Prescriptions: New Vraylar 6 mg capsule 6 mg PO DAILY Qty: 30 RF: 0 Continued metformin 500 mg Tablet 500 mg PO BID RF: 0 bupropion HCl [Wellbutrin SR] 150 mg Tablet Sustained-Release 12 Hr 150 mg PO BID RF: 0 Discontinued Vraylar 3 mg Capsule 3 mg PO DAILY RF: 0 Discharge Orders: Discharge Order (Routine); Ordered 12/15/21 Ordered By: Heidi Stewart/Other Patient Handouts: Managing Type 2 Diabetes Admission Data Admit Date/Time: 12/11/21 21:26 Attending Provider: Heidi Finney Admit Provider: Heidi Finney Primary Care Provider: Garcia Ayon Other Providers: Zoey Monson Other Interventions: Discharge Summary Assessment (RN) Last Done: 12/15/21 15:07 PSY Interdisciplinary Discharge Planning Last Done: 12/15/21 15:07 Coding Level of Care Code 57684 D/C day mgmt > 30 min Diagnoses Schizoaffective disorder F25.9 Sleep apnea G47.30
[2021-12-16 07:56] LABS: MDA negative; MDEA negative; MDMA (Ecstasy) Urine, Confirm negative
== END 2021-12-15 16:16 | disposition home or self-care (01) | DRG 885 ==
LOC: ED 16:26 → 3S 21:17
DX: F25.9 Schizoaffective disorder, unspecified; Z91.048 Other nonmedicinal substance allergy status; I10 Essential (primary) hypertension; Z87.891 Personal history of nicotine dependence; Z79.84 Long term (current) use of oral hypoglycemic drugs; F41.9 Anxiety disorder, unspecified